=== PATIENT | male | born 1945 | race Caucasian/White ===

== ENCOUNTER → 2018-03-12 07:36 | Outpatient (CLI) | payer MEDICARE, OTHER, SELFPAY ==
[2018-03-12 10:01] LABS: Cholesterol 183 mg/dL (140-199); HDL Cholesterol 45 mg/dL (40-60); LDL Cholesterol Calculated 118 mg/dL (<100); Triglycerides 98 mg/dL (35-150)
[2018-03-12 10:27] LABS: Prostate Specific Antigen Scrn 2.46 ng/mL (0.1-4.0)
== END ==
PROVIDERS: Visit Provider Internal Medicine Cardiovascular Disease
DX: Z12.5 Encounter for screening for malignant neoplasm of prostate (principal); E78.5 Hyperlipidemia, unspecified
CPT/HCPCS: 36415; 80061; G0103

== ENCOUNTER → 2018-06-10 12:29 | Outpatient (CLI) | payer MEDICARE, OTHER, SELFPAY ==
--- NOTE | 2018-06-10 | DI.ECHO.S_ITS ---
[facility]---------+ [facility] +---------+ : : [address] : [place] : : : : [id number] : : : : Phone: [phone]---------+ Echocardiogram Report + + :Name: ADELAIDA DESHPANDE Study Date: 06/10/2018 Height: 72 in : :[facility] Weight: 231 lb : : Gender: Male BSA: 2.3 m2 : :: 1945 Age: 72 yrs BP: 184/120 mmHg: :Reason For Study: Ascending aortic dilatation : :History: CABG : :Ordering Physician: Eduar : :P[place] Performed By: Jeanette Robb : + + Interpretation Summary The left ventricle is mildly dilated. The ejection fraction is estimated to be 50-55%. There has been no significant change in LVEF since the previous study. The right ventricle is normal in size and function. No significant valvular pathology seen. The ascending aorta is moderately enlarged (4.2 cm in diameter. In March 2014, it was about 4.6 cm). Procedure: A two-dimensional transthoracic echocardiogram with color flow and Doppler was performed. Comparison is made with the echocardiogram of 04/20/2014. Mr. Deshpande was hypertensive during today's exam. Pre and post exam readings were identical, 184/120 mmHg. He was asymptomatic. The patient was in sinus bradycardia with heart rates between 51-64 bpm during the exam. Left Ventricle: Left ventricular wall thickness is at the upper limits of normal. The left ventricle is mildly dilated. There is no thrombus. The ejection fraction is estimated to be 50-55%. There has been no significant change since the previous study. There is thinning and akinesis of the proximal inferior wall and inferoseptum with moderately severe hypokinesis in the proximal and mid posterior wall. This is unchanged compared to the previous study. Assessment of diastolic parameters indicates a relaxation abnormality of the left ventricle, consistent with normal filling pressures. Right Ventricle: The right ventricle is normal in size and function. Atria: The left atrium is mildly dilated. The left atrium has mildly decreased in size since the prior echo exam. Right atrial size is normal. There is no Doppler evidence for an interatrial shunt. Mitral Valve: There is mild mitral annular calcification. There is trace mitral regurgitation. Aortic Valve: The aortic valve is trileaflet. The aortic valve is slightly calcified. There is no aortic valve stenosis. There is trace aortic regurgitation. Tricuspid Valve: The tricuspid valve is normal. The right ventricular systolic pressure is estimated at least 23 mmHg assuming a right atrial pressure of 3 mm Hg. There is trace tricuspid regurgitation. Pulmonic Valve: The pulmonic valve is not well seen, but is grossly normal. There is a trace or physiologic amount of pulmonic regurgitation. Great Vessels: The aortic root is mildly dilated. The ascending aorta is moderately enlarged. The aortic arch is mildly enlarged. The IVC is of normal diameter and collapses greater than 50% with a sniff. This suggests a low right atrial pressure of 3 mm Hg. Pericardium/ Pleura There is no pericardial effusion. MMode/2D Measurements & Calculations LVIDd: 5.9 cm LVOT diam: 2.4 cm LVIDs: 4.4 cm Ao root diam: 4.3 cm FS: 24.1 % Aortic Jxn: 3.5 cm EPSS: 1.0 cm asc Aorta Diam: 4.2 cm IVSd: 1.1 cm Ao Arch Diam (Prox Trans): 3.3 cm LVPWd: 0.84 cm LV marroquin. diameter/BSA (cm/m^2): 2.6 LV sys. diameter/BSA (cm/m^2): 2.0 LA A2 area: 24.7 cm2 RA long axis: 5.9 cm LA A4 area: 24.0 cm2 RA area: 18.6 cm2 LA length (vol): 6.3 cm RA vol: 49.5 ml LA vol: 80.3 ml RA : 21.9 ml/m2 LA vol index: 35.5 ml/m2 IVC diam: 1.3 cm RVD1 (basal): 2.5 cm RVD2 (mid): 2.1 cm TAPSE: 2.7 cm Doppler Measurements & Calculations Ao V2 max: 134.9 cm/sec LVOT Max Rubens: 69.8 cm/sec Ao V2 mean: 85.0 cm/sec LV V1 max P.9 mmHg Ao max P.3 mmHg LV V1 VTI: 19.7 cm Ao mean P.4 mmHg HERBER(I,D): 3.1 cm2 Ao V2 VTI: 28.3 cm HERBER(V,D): 2.3 cm2 sev ratio: 0.70 HERBER indexed to BSA (cm^2/m^2): 1.4 MV E max rubens: 65.2 cm/sec TR max rubens: 219.1 cm/sec MV A max rubens: 100.6 cm/sec TR max P.2 mmHg MV E/A: 0.65 PA V2 max: 77.6 cm/sec Med Peak E' Rubens: 4.2 cm/sec PA V2 mean: 49.2 cm/sec E/E' med: 15.5 PA mean P.1 mmHg Lat Peak E' Rubens: 7.7 cm/sec PA Accel Time: 0.11 sec E/E' lat: 8.5 E/e' average: 12.0 MV dec time: 0.21 sec MV P1/2t: 60.6 msec MV P1/2t max rubens: 65.2 cm/sec MVA(P1/2t): 3.6 cm2 Reading Physician:EKTA
== END ==
PROVIDERS: PCP Student in an Organized Health Care Education/Training Program; Visit Provider Internal Medicine Cardiovascular Disease
DX: I77.810 Thoracic aortic ectasia (principal); I05.9 Rheumatic mitral valve disease, unspecified
CPT/HCPCS: 93306

== ENCOUNTER → 2018-08-28 09:35 | Outpatient (CLI) | payer MEDICARE, OTHER, SELFPAY ==
[2018-08-28 11:02] LABS: Alanine Aminotransferase 33 IU/L (21-72); Albumin 4.3 g/dL (3.5-5.0); Albumin Globulin Ratio 1.5 (1.0-2.8); Alkaline Phosphatase 83 U/L (38-126); Aspartate Aminotransferase 26 IU/L (17-59); BUN Creatinine Ratio 24.5 (6-22); Bilirubin Total 0.3 mg/dL (0.2-1.3); Blood Urea Nitrogen 27 mg/dL (9-20); Calcium 9.2 mg/dL (8.4-10.2); Carbon Dioxide 28 mmol/L (22-32); Chloride 106 mmol/L (98-107); Cholesterol 184 mg/dL (140-199); Estimated Glomerular Filt Rate > 60.0 mL/min (>60); Globulin 2.9 g/dL (1.7-4.1); Glucose 76 mg/dL (80-110); HDL Cholesterol 50 mg/dL (40-60); HEMOLYSIS < 15 (0-50); LDL Cholesterol Calculated 113 mg/dL (<100); Potassium 5.2 mmol/L (3.4-5.1); Sodium 145 mmol/L (137-145); Total Protein 7.2 g/dL (6.3-8.2); Triglycerides 106 mg/dL (35-150)
[2018-08-28 11:13] LABS: Vitamin D 25 Hydroxy (D3) 75.7 ng/mL (30.0-100.0)
[2018-08-28 11:27] LABS: Prostate Specific Antigen Scrn 2.51 ng/mL (0.1-4.0)
== END ==
PROVIDERS: PCP Student in an Organized Health Care Education/Training Program; Visit Provider Student in an Organized Health Care Education/Training Program
DX: E78.2 Mixed hyperlipidemia (principal); I10 Essential (primary) hypertension; Z12.5 Encounter for screening for malignant neoplasm of prostate; E55.9 Vitamin D deficiency, unspecified
CPT/HCPCS: 36415; 80053; 80061; 82306; G0103

== ENCOUNTER → 2018-11-15 12:57 | Outpatient (CLI) | payer MEDICARE, OTHER, SELFPAY ==
--- NOTE | 2018-11-15 | DI.RAD.S_ITS ---
PROCEDURE: XR KNEE LT 3V INDICATIONS: BILATERAL KNEE PAIN TECHNIQUE: 3 views of the knee were acquired. COMPARISON: [facility], CR, XR KNEE RT 3V, 11/15/2018, 13:03. FINDINGS: Bones: No fractures or dislocations. No suspicious bony lesions. Mild medial joint space narrowing, subchondral sclerosis and spurring. There is superior pole patellar spurring Possible sub-5 mm loose body projects in the anterior joint space adjacent to the tibial plateau on the lateral view Soft tissues: Scattered surgical clips. No joint effusion IMPRESSION: Mild left knee joint degeneration. Possible small loose body as detailed above. Dictated by: Aneudy Montejo M.D. on 11/15/2018 at 14:13 Approved by: Aneudy Montejo M.D. on 11/15/2018 at 14:16
--- NOTE | 2018-11-15 | DI.RAD.S_ITS ---
PROCEDURE: XR KNEE RT 3V INDICATIONS: BILATERAL KNEE PAIN TECHNIQUE: 3 views of the knee were acquired. COMPARISON: None. FINDINGS: Bones: No fractures or dislocations. No suspicious bony lesions. Mild narrowing of the medial joint space. Subchondral sclerosis and spurring. Probable chronic corticated ununited osteophytes projecting adjacent to medial tibial plateau. Soft tissues: Small joint effusion. Possible multiple sub-5 mm loose bodies project in anterior intercondylar notch IMPRESSION: Mild degenerative joint disease. Small joint effusion. Possible anterior sub-5 mm loose bodies. Dictated by: Aneudy Montejo M.D. on 11/15/2018 at 14:02 Approved by: Aneudy Montejo M.D. on 11/15/2018 at 14:05
== END ==
PROVIDERS: PCP Student in an Organized Health Care Education/Training Program; Visit Provider Anesthesiology Pain Medicine
DX: M25.562 Pain in left knee (principal); M25.561 Pain in right knee; M17.0 Bilateral primary osteoarthritis of knee; M25.461 Effusion, right knee
CPT/HCPCS: 73562

== ENCOUNTER → 2019-04-18 08:25 | Outpatient (CLI) | payer MEDICARE, OTHER, SELFPAY ==
--- NOTE | 2019-04-18 | DI.MRI.S_ITS ---
PROCEDURE: MR LUMBAR SPINE WO CON INDICATIONS: Spinal stenosis, lumbosacral region TECHNIQUE: Noncontrast sagittal T1 spin echo and T2 fast echo, sagittal STIR, axial T1 and T2 fast spin echo through the lumbar spine. In cases with scoliosis, additional coronal T2 fast spin echo may be performed. COMPARISON: [facility], MR, L-SPINE WITHOUT CONTRAST, 06/18/2013, 11:42. FINDINGS: Image quality: Excellent. Alignment and Curvature: There is mild dextroscoliosis of lumbar spine centered at L2-3 level. Straightening of normal lumbar lordosis is seen. Bone Marrow: Marrow edema is noted involving inferior endplate of L1 and superior endplate of L2. No discrete fracture line is seen. Finding likely represents degenerative end plate changes. No other area of abnormal marrow signal. No acute compression fracture. Spinal Cord: Conus medullaris terminates at the L1 level. Visualized cord demonstrates normal signal and size. Paraspinous Soft Tissues: No paravertebral masses. L1-L2: Decreased intervertebral disc space and degenerative end plate changes are noted. There is diffuse disc bulge and superimposed central to right-sided disc herniation and extrusion extending along right posterior aspect of L2. Bilateral facet arthrosis is also seen. There is moderate central canal stenosis and mild bilateral neuroforaminal narrowing. There is likely compression of descending right L2 nerve root at this level. L2-L3: Decreased intervertebral disc space and degenerative end plate changes are seen. Broad-based disc bulge and bilateral facet arthrosis is noted causing moderate central canal stenosis, moderate to severe left-sided neuroforaminal narrowing and mild right-sided neuroforaminal narrowing. There is likely compression of left L2 and L3 nerve roots. L3-L4: Decreased intervertebral disc space and degenerative endplate changes are seen. There is broad-based disc bulge and bilateral facet arthrosis with hypertrophy of ligamentum flavum. Moderate to severe central canal stenosis and bilateral neuroforaminal narrowing is seen. There is likely compression of left L3 and L4 nerve roots. L4-L5: Decreased intervertebral disc space and degenerative end plate changes are noted. Broad-based disc bulge and bilateral facet arthrosis is seen with hypertrophy of ligamentum flavum. Moderate central canal stenosis is seen. Severe bilateral neuroforaminal narrowing is noted worse on the right side. There is compression of bilateral exiting L4 nerve roots. L5-S1: Decreased intervertebral disc space and degenerative end plate changes are seen. Broad-based disc bulge and bilateral facet arthrosis is noted. There is mild central canal stenosis and moderate right worse than left bilateral neuroforaminal narrowing. There is compression of bilateral exiting L5 nerve roots. IMPRESSION: 1. Compared to 2013, there is worsening degenerative disc bulge and bilateral facet arthrosis throughout lumbar spine causing moderate to severe central canal stenosis and bilateral neuroforaminal narrowing as described above. 2. Mild to moderate dextroscoliosis centered at L2-3 level. No acute compression fracture or spondylolisthesis. Dictated by: Chico Napier M.D. on 04/18/2019 at 10:21 Approved by: Chico Napier M.D. on 04/18/2019 at 10:29
== END ==
PROVIDERS: PCP Student in an Organized Health Care Education/Training Program; Visit Provider Anesthesiology Pain Medicine
DX: M48.07 Spinal stenosis, lumbosacral region (principal); M47.816 Spondylosis without myelopathy or radiculopathy, lumbar region; M47.817 Spondylosis without myelopathy or radiculopathy, lumbosacral region; M41.86 Other forms of scoliosis, lumbar region
CPT/HCPCS: 72148

== ENCOUNTER → 2019-09-12 06:33 | Outpatient (CLI) | payer MEDICARE, OTHER, SELFPAY ==
--- NOTE | 2019-09-12 | DI.MRI.S_ITS ---
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 TECHNIQUE: Noncontrast sagittal T1 spin echo, axial FLAIR, axial gradient echo, axial diffusion and ADC through the brain. Axial thin-slice 3D CISS, coronal TruFISP, axial T1 spin echo with fat saturation through the internal auditory canals. After the administration of contrast, thin slice axial and coronal T1 spin echo with fat saturation through the internal auditory canals, and axial T1 spin echo with fat saturation through the brain. COMPARISON: [facility], MR, BRAIN (IAC) W&WO CONTRAST, 09/07/2017, 7:09. [facility], MR, BRAIN (IAC) W&WO CONTRAST, 05/10/2016, 8:25. FINDINGS: Image quality: Excellent. Cerebellopontine angles: No cerebellopontine angle masses but at the internal auditory canal on the right, the laterality of prior documented acoustic neuroma, there is an enhancing soft tissue structure that has maximal AP and transverse dimensions of 6 x 12 mm, with a maximal craniocaudad dimension of 7 mm. A earlier postoperative MR scan with contrast is not available for review and it has been 2 years since the last available preoperative MR scanning. Inner ear structures appear normally formed. No suspicious enhancement in the left side internal auditory canal or along the course of the 7th cranial nerve on the left. CSF spaces: Ventricles are normal in size and shape. No extra-axial fluid collections. Basal cisterns are patent. Brain: No intracranial bleeds or mass effects. Campbell-white matter interface is intact. No abnormal intracranial enhancement. Diffusion weighted images demonstrate no acute ischemic insults. Brainstem appears normal. Normal intravascular flow voids are present. Skull and face: Calvarial marrow signal is normal. Orbits appear normal. Sinuses: Sinuses and mastoids are clear. IMPRESSION: The residual soft tissue mass with enhancement at the right internal auditory canal measures up to 6 x 12 x 7 mm and if a comparison contrast-enhanced MR scan is available for review subsequent to the last available previous surgery MR scan (dated 09/07/17) it should be obtained for review and an addendum report to this study can be generated. This likely is a small residual acoustic neuroma by appearance but it is conceivable that postoperative scarring could produce such an appearance with enhancement. Dictated by: Jorgito Garzon M.D. on 09/12/2019 at 8:12 Approved by: Jorgito Garzon M.D. on 09/12/2019 at 8:25
== END ==
PROVIDERS: PCP Student in an Organized Health Care Education/Training Program; Visit Provider Otolaryngology Otology & Neurotology
DX: D33.3 Benign neoplasm of cranial nerves (principal)
CPT/HCPCS: 70553

== ENCOUNTER → 2019-10-10 06:39 | Outpatient (CLI) | payer MEDICARE, OTHER, SELFPAY ==
--- NOTE | 2019-10-10 | DI.ECHO.S_ITS ---
[facility]---------+ [facility] +---------+ : : [address] [place] : : : : [id number] : : : : Phone: [phone]+ Echocardiogram Report + + :Name: ADELAIDA DSEHPANDE Study Date: 10/10/2019 Height: 71 in : :[facility] Weight: 230 lb : : Gender: Male BSA: 2.2 m2 : :: 1945 Age: 73 yrs BP: 131/80 mmHg: :Reason For Study: Thoracic aortic ectasia : :Ordering Physician: Eduar : :Onel Ramirez Performed By: Karen Page : + + Interpretation Summary The left ventricle is dilated based on volume of 166 ml. LVEDD has increased from 5.9-6.1cm The ejection fraction is estimated to be 50-55%. The aortic root is severely dilated. 4.8 cm an increase from last time when it was 4.3 The ascending aorta is moderately enlarged. There is no significant valvular heart disease. Procedure: A two-dimensional transthoracic echocardiogram with color flow and Doppler was performed. The study quality was technically adequate. Comparison is made with the echocardiogram of 06/10/2018. The heart rate ranged between 57-61 bpm during the study. Left Ventricle: The left ventricle is dilated based on volume of 166 ml. LVEDD has increased from 5.9-6.1cm. There is normal left ventricular wall thickness. The ejection fraction is estimated to be 50-55%. Septal motion is consistent with conduction abnormality. Diastolic parameters suggest a relaxation abnormality of the left ventricle, consistent with probable normal filling pressures. Right Ventricle: The right ventricle grossly appears normal in size with probable normal systolic function. Atria: The left atrium is mildly dilated. Right atrial size is normal. There is no Doppler evidence for an interatrial shunt. The atrial septum is aneurysmal. Mitral Valve: The mitral valve leaflets appear mildly thickened, but open well. There is mild mitral annular calcification. There is trace mitral regurgitation. Aortic Valve: The aortic valve is trileaflet. The aortic valve opens well. There is trace aortic regurgitation. Tricuspid Valve: The tricuspid valve is normal in structure and function. There is a trace or physiologic amount of tricuspid regurgitation. Pulmonary artery pressures cannot be estimated because of the lack of a measurable TR jet velocity. Pulmonic Valve: The pulmonic valve is not well visualized. There is trace pulmonic regurgitation. Great Vessels: The aortic root is severely dilated. The ascending aorta is moderately enlarged. The pulmonary artery is normal size. The IVC is of normal diameter and collapses greater than 50% with a sniff. This suggests a low right atrial pressure of 3 mm Hg. Pericardium/ Pleura There is no pericardial effusion. There is no pleural effusion. MMode/2D Measurements & Calculations LVIDd: 6.1 cm LVOT diam: 2.4 cm EPSS: 0.91 cm Ao root diam: 4.7 cm IVSd: 0.70 cm Aortic Jxn: 3.9 cm LVPWd: 0.81 cm asc Aorta Diam: 4.3 cm LV marroquin. diameter/BSA (cm/m^2): 2.7 LA A2 area: 25.1 cm2 RA long axis: 5.5 cm LA A4 area: 26.4 cm2 RA area: 19.2 cm2 LA length (vol): 6.6 cm RA vol: 57.1 ml LA vol: 85.2 ml RA : 25.5 ml/m2 LA vol index: 38.1 ml/m2 RVD1 (basal): 4.4 cm RVD2 (mid): 3.8 cm TAPSE: 2.3 cm Doppler Measurements & Calculations Ao V2 max: 136.3 cm/sec LVOT Max Rubens: 68.9 cm/sec Ao V2 mean: 89.8 cm/sec LV V1 max P.9 mmHg Ao max P.4 mmHg LV V1 VTI: 16.3 cm Ao mean P.9 mmHg HERBER(I,D): 2.5 cm2 Ao V2 VTI: 29.4 cm HERBER(V,D): 2.3 cm2 sev ratio: 0.56 HERBER indexed to BSA (cm^2/m^2): 1.1 MV E max rubens: 59.8 cm/sec PA V2 max: 79.8 cm/sec MV A max rubens: 94.3 cm/sec PA V2 mean: 53.1 cm/sec MV E/A: 0.63 PA mean P.3 mmHg Med Peak E' Rubens: 4.3 cm/sec PA Accel Time: 0.13 sec E/E' med: 13.8 Lat Peak E' Rubens: 7.5 cm/sec E/E' lat: 7.9 E/e' average: 10.9 MV dec time: 0.17 sec MV P1/2t: 50.7 msec MV P1/2t max rubens: 60.8 cm/sec SV(LVOT): 73.4 ml MVA(P1/2t): 4.3 cm2 Reading Physician:02:45 PM
== END ==
PROVIDERS: PCP Student in an Organized Health Care Education/Training Program; Visit Provider Internal Medicine Cardiovascular Disease
DX: I77.810 Thoracic aortic ectasia (principal)
CPT/HCPCS: 93306

== ENCOUNTER → 2019-10-23 14:42 | Outpatient (CLI) | payer MEDICARE, OTHER, SELFPAY ==
[2019-10-23 16:01] LABS: BUN Creatinine Ratio 28.3 (6-22); Blood Urea Nitrogen 34 mg/dL (9-20); Calcium 9.5 mg/dL (8.4-10.2); Carbon Dioxide 29 mmol/L (22-32); Chloride 105 mmol/L (98-107); Estimated Glomerular Filt Rate 59.7 mL/min (>60); Glucose 79 mg/dL (80-110); HEMOLYSIS < 15 (0-50); Potassium 4.4 mmol/L (3.4-5.1); Sodium 141 mmol/L (137-145)
== END ==
PROVIDERS: Nurse Practitioner; PCP Student in an Organized Health Care Education/Training Program; Visit Provider Student in an Organized Health Care Education/Training Program
DX: I77.9 Disorder of arteries and arterioles, unspecified (principal); I77.810 Thoracic aortic ectasia; I10 Essential (primary) hypertension
CPT/HCPCS: 36415; 80048

== ENCOUNTER → 2019-10-31 12:44 | Outpatient (CLI) | payer MEDICARE, OTHER, SELFPAY ==
--- NOTE | 2019-10-31 | DI.CT.S_ITS ---
PROCEDURE: CT ANGIO CHEST ABDOMEN INDICATIONS: disorder of arteries and arterioles TECHNIQUE: Precontrast 5 mm thick sections acquired from the lung apices to the iliac crests. After the administration of intravenous contrast, 2.5 mm thick sections again acquired from the lung apices to the iliac crests. 10 mm maximum intensity projection (MIP) oblique sagittal and coronal reformats were then acquired. For radiation dose reduction, the following was used: automated exposure control. COMPARISON: None. FINDINGS: Image quality: Excellent. AORTA: The aorta demonstrates scattered areas of wall calcification consistent mild atherosclerotic disease. There is aneurysmal dilation of the ascending portion measuring 4.2 cm. No evidence of dissection. CHEST: Lungs and pleura: No acute airspace opacities. No pleural effusions or pneumothorax. Central and peripheral airways are patent and normal in caliber. 5 mm right upper lobe nodule is present on series 5 image 150. No priors are available for comparison. Mediastinum: Heart size is mildly enlarged. No pericardial effusion. No mediastinal or hilar adenopathy by size criteria. Central pulmonary arteries are normal in size. Esophagus is normal in caliber. Mild hiatal hernia. Bones and chest wall: No axillary adenopathy by size criteria. Thyroid gland is unremarkable. No suspicious bony lesions. No vertebral body compression fractures. ABDOMEN: Vasculature: Celiac trunk and mesenteric arteries are patent. Renal arteries are also patent. Solid organs: Liver is normal in size and enhancement. Gallbladder is unremarkable. Biliary system is non dilated. Pancreas enhances normally. Spleen is normal in size and enhancement. No adrenal nodules. Both kidneys are normal in size and enhancement, without hydronephrosis. Bilateral renal cysts are present the largest measuring 3 cm on the right. Peritoneum and bowel: No free fluid or air. Bowel loops are normal in caliber and wall thickness. Nodes and vessels: No retroperitoneal or mesenteric adenopathy by size criteria. Inferior vena cava is normal in morphology. Bones: No suspicious bony lesions. No vertebral body compression fractures. Miscellaneous: No ventral hernias. IMPRESSION: 1. Mild ascending thoracic aneurysmal dilation as above. 2. Nonspecific 5 mm right upper lobe nodule. No priors are available for comparison. Recommend interval followup as below. Fleischner Society criteria for SOLID lung nodule followup. Nodule size (mm)Low-risk patientHigh-risk patient<6 (single or multiple)No routine followup.Optional CT at 12 months. 6-8 (single or multiple)CT at 6-12 months, then optional CT at 18-24 mo.CT at 6-12 months, then CT at 18-24 months. >8 (single)CT, PET-CT, or biopsy at 3 months. Same as for low-risk pts. >8 (multiple)CT at 3-6 months, then optional CT at 18-24 mo.CT at 3-6 months, then CT at 18-24 months. Recommendations do not apply to lung cancer screening, patients with immunosuppression, or patients with known primary cancer. Dictated by: Danielle Shanks M.D. on 10/31/2019 at 15:35 Approved by: Danielle Shanks M.D. on 10/31/2019 at 16:00
== END ==
PROVIDERS: PCP Student in an Organized Health Care Education/Training Program; Referring Provider Internal Medicine Cardiovascular Disease; Visit Provider Nurse Practitioner
DX: I71.2 Thoracic aortic aneurysm, without rupture (principal); I77.9 Disorder of arteries and arterioles, unspecified; R91.8 Other nonspecific abnormal finding of lung field; I51.7 Cardiomegaly; K44.9 Diaphragmatic hernia without obstruction or gangrene
CPT/HCPCS: 71275; 74175; Q9967

== ENCOUNTER → 2019-11-14 18:08 | Outpatient (CLI) | payer MEDICARE, OTHER, SELFPAY ==
--- NOTE | 2019-11-14 18:13 | DI.RAD.S_ITS ---
PROCEDURE: XR HUMERUS LT 2V INDICATIONS: on plavix, hematoma, r/o fracture TECHNIQUE: 2 views of the humerus were acquired. COMPARISON: None. FINDINGS: Bones: No fractures or dislocations. No suspicious bony lesions. Mild to moderate degenerative joint disease in the acromioclavicular and glenohumeral joint. Superior migration of humeral head suggests rotator cuff tendinopathy. Soft tissues: No suspicious soft tissue calcifications. IMPRESSION: 1. No fractures. 2. Suspect rotator cuff tendinopathy. 3. Mild/moderate degenerative joint disease. Dictated by: Ana Maria Clemente M.D. on 11/14/2019 at 21:08 Approved by: Ana Maria Clemente M.D. on 11/14/2019 at 21:10
--- NOTE | 2019-11-14 18:13 | DI.RAD.S_ITS ---
PROCEDURE: XR RIBS LT MIN 3V W CXR1V INDICATIONS: on plavix, hematoma, r/o fracture TECHNIQUE: 2 views of the left ribs were acquired, along with a single view chest. COMPARISON: [facility], PRASANTH, CHEST 1 VIEW, 11/22/2017, 22:08. [facility], PRASANTH, XR HUMERUS LT 2V, 11/14/2019, 18:16. FINDINGS: Surgical changes and devices: Sternotomy and CABG. The most superior sternal wire is fractured but unchanged since the last exam. Bones and chest wall: No fractures or dislocations. No suspicious bony lesions. Overlying soft tissues appear unremarkable. Lungs and pleura: No pleural effusions or pneumothorax. Lungs appear clear. Mediastinum: Mediastinal contours appear normal. Heart size is normal. IMPRESSION: No displaced left rib fractures. Dictated by: Ana Maria Clemente M.D. on 11/14/2019 at 21:05 Approved by: Ana Maria Clemente M.D. on 11/14/2019 at 21:08
== END ==
PROVIDERS: PCP Student in an Organized Health Care Education/Training Program; Referring Provider Physician Assistant; Visit Provider Physician Assistant
DX: S40.029A Contusion of unspecified upper arm, initial encounter (principal); S20.219A Contusion of unspecified front wall of thorax, initial encounter; M19.012 Primary osteoarthritis, left shoulder; W19.XXXA Unspecified fall, initial encounter; Z79.01 Long term (current) use of anticoagulants; Z95.1 Presence of aortocoronary bypass graft
CPT/HCPCS: 71101; 73060

== ENCOUNTER 2019-11-20 02:34 | Emergency (ER) | payer MEDICARE, OTHER, SELFPAY ==
--- NOTE | 2019-11-20 02:43 | ED_ITS ---
HPI - General Adult General Chief complaint: Fall Stated complaint: GLF Time Seen by Provider: 11/20/19 02:35 History of Present Illness HPI narrative: 73 yo man recently off all blood pressure meds and plavix. Fell in his bathroom and hit his right congregational, notes approximately 2min LOC. No seizure like activity, some confusion that is clearing is noted. No focal neurologic findings, no chest pain, diaphoresis, or dyspnea. No fevers and he and his confirm that he was in his usual state of good health prior to going to sleep this evening. He has little recollection of the event specifically whether he had pain, headache, palpitations or sensation that he was going to pass out prior to the event. Related Data Home Medications Medication Instructions Recorded Confirmed ASPIRIN (Aspirin EC) 81 mg PO QDAY #0 02/28/12 11/14/19 acetaminophen 2 - 4 tab PO QDAY #0 02/28/12 11/14/19 naproxen sodium [Aleve] 1 tab PO PRN #0 05/13/13 11/14/19 cholecalciferol (vitamin D3) 4,000 unit PO QDAY #0 07/15/16 11/14/19 [Vitamin D3] [garth/mag/zinc] #0 01/15/17 11/14/19 [co-Q10] 200 mg PO QDAY #0 01/15/17 11/14/19 acetaminophen-codeine 1 tab PO PRN PRN #0 01/15/17 11/14/19 omega 5-ymi-vef-fish oil [Fish Oil] 2,000 mg PO QDAY #0 01/15/17 11/14/19 diphenhydramine HCl 50 mg capsule 50 mg PO BEDTIME PRN 08/28/18 11/14/19 ranitidine HCl 150 mg tablet 300 mg PO DAILY 08/28/18 11/14/19 Previous Rx's Medication Instructions Recorded tamsulosin 0.4 mg capsule 0.4 mg PO BEDTIME #30 cap 08/28/18 clopidogrel 75 mg tablet 75 mg PO QDAY #90 tab 11/11/18 Allergies Allergy/AdvReac Type Severity Reaction Status Date / Time losartan Allergy Severe seizures Verified 11/14/19 17:35 metoprolol Allergy Severe Hypotension, Verified 11/14/19 17:35 presyncope lisinopril AdvReac Mild Cough Verified 11/14/19 17:35 Review of Systems Review of Systems Narrative: The laser eye surgery on the right eye earlier today All systems reviewed and are unremarkable except as noted in HPI and below Patient History Medical History (Updated 11/20/19 @ 04:09 by Denise Holm MD) CAD (coronary artery disease) (Chronic 2007) Chicken pox (Resolved ~1954) Chronic back pain (Chronic) Contusion of left arm (Acute) Contusion of left chest wall (Acute) Fall (Acute) Foot pain (Resolved 2015) Gastric outlet obstruction (Resolved 1997) Hearing loss (Chronic) Hemorrhoids (Chronic) History of recurrent ear infection (Resolved) Hyperlipidemia (Chronic) Hypertension (Chronic) Measles (Resolved ~1954) Mumps (Resolved ~1954) Obesity (BMI 30.0-34.9) (Acute) Paroxysmal atrial fibrillation (Chronic) Plantar warts (Resolved ~1964) Pyloric stenosis (Resolved 1947) Right acoustic neuroma (Resolved 2003) Shoulder pain (Chronic 2012) Spasms of the hands or feet (Acute) Stroke (Resolved 2017) Surgical History (Updated 05/22/18 @ 11:04 by Annamaria Roberson) Anesthesia (Resolved) History of ear surgery (Resolved 2003) History of gastrointestinal surgery (Resolved 1947) Status post coronary artery bypass graft (Resolved 2007) Status post gastric surgery (Resolved 1997) Family History (Updated 05/22/18 @ 11:10 by Annamaria Roberson) Sister Diabetes mellitus Father COPD (chronic obstructive pulmonary disease) Emphysema of lung Mother GI cancer Colon cancer Social History Smoking Status: Never smoker Smoking Status: Never smoker Exam Narrative Exam Narrative: General: Healthy appearing, in no acute distress. Abrasion and contusion to the right congregational, perseverating questions. Oriented to person, place, but not date or age. Well-nourished well-developed HEENT: Moist mucous membranes, normal sclera with reactive pupils, surgical scar from acoustic neuroma right occiput. Neck: No JVD, supple Respiratory: Lungs are clear to auscultation, no wheezing no rales no rhonchi. Full and symmetrical air movement Cardiac: Regular rate and rhythm no murmurs no bruits Abdomen: Soft nontender good bowel tones, no flank pain Skin: Warm and dry, no rashes Neurologic: Grossly neurologically intact with no obvious asymmetries or abnormalities Extremities: large bruise to L upper arm appears to be 2-3days old, well perfused Psych: Cooperative, but poor insight and notable confusion Initial Vital Signs Initial Vital Signs: Vital Signs Temperature 98.4 F 11/20/19 02:45 Pulse Rate 68 11/20/19 02:45 Respiratory Rate 27 H 11/20/19 02:45 Blood Pressure 203/105 H 11/20/19 02:45 Pulse Oximetry 98 11/20/19 02:45 Course Orders Ordered: ED Orders 11/20/19 02:40 Complete Blood Count AUTO DIFF Stat Comprehensive Metabolic Panel Stat Troponin & CK Cardiac Panel Stat 11/20/19 02:44 XR chest 1V Stat 11/20/19 02:45 CT cervical spine wo con Stat CT head/brain wo con Stat 11/20/19 02:53 EKG-12 Lead Stat Sodium Chloride (Normal Saline 0.9%) 1,000 mls @ 150 mls/hr IV CONT PUMA Last Admin: 11/20/19 03:23 Dose: 150 mls/hr Documented by: MMCFARL Vital Signs Vital signs: Vital Signs - 8 hr 11/20/19 02:45 11/20/19 03:07 11/20/19 03:30 Temperature 98.4 F Pulse Rate 68 66 63 Respiratory Rate 27 H 25 H 12 Blood Pressure 203/105 H Blood Pressure [Right Arm] 186/102 H 167/92 H Pulse Oximetry 98 97 96 Medical Decision Making Medical Records Medical records reviewed: Yes I reviewed the patient's medical records. Lab Data Lab results reviewed: Yes I reviewed the patient's lab results. Result diagrams: 11/20/19 02:40 11/20/19 02:40 Labs: Lab Results 11/20/19 11/20/19 Range/Units 02:40 02:40 WBC 8.3 (4.5-11.0) X10^3/uL RBC 4.62 (4.5-5.9) X10^6/uL Hgb 14.5 (13.5-17.5) g/dL Hct 42.0 (41-53) % MCV 91.0 (80-100) fL MCH 31.5 (26-34) PG MCHC 34.6 (30-36) % RDW 13.1 (11.6-14.8) % Plt Count 186 (150-400) X10^3/uL Neut % (Auto) 56.1 (50-75) % Lymph % (Auto) 28.8 (25-40) % Jasper % (Auto) 11.2 (3-14) % Eos % (Auto) 3.0 (2-4) % Baso % (Auto) 0.9 (0-2) % Neut # (Auto) 4700 (4030-0949) /uL Lymph # (Auto) 2400 (1654-0772) /uL Jasper # (Auto) 900 (0-900) /uL Eos # (Auto) 200 (0-450) /uL Baso # (Auto) 100 (0-100) /uL Sodium 141 (137-145) mmol/L Potassium 4.0 (3.4-5.1) mmol/L Chloride 106 (98-107) mmol/L Carbon Dioxide 27 (22-32) mmol/L BUN 30 H (9-20) mg/dL Creatinine 1.00 (0.66-1.25) mg/dL Estimated GFR > 60.0 (>60) mL/min BUN/Creatinine Ratio 30.0 H (6-22) Glucose 106 (80-110) mg/dL Calcium 9.3 (8.4-10.2) mg/dL Total Bilirubin 0.5 (0.2-1.3) mg/dL AST 30 (17-59) IU/L ALT 21 (<50) IU/L Alkaline Phosphatase 86 (38-126) U/L Total Creatine Kinase 160 (55-170) U/L CK-MB (CK-2) 2.96 H (<2.37) ng/mL CK-MB (CK-2) Rel Index 1.9 (1.5-5.0) % Troponin I < 0.012 (0.01-0.034) ng/mL Total Protein 7.6 (6.3-8.2) g/dL Albumin 4.3 (3.5-5.0) g/dL Globulin 3.3 (1.7-4.1) g/dL Albumin/Globulin Ratio 1.3 (1.0-2.8) Imaging Data Chest x-ray: Attestation: I personally reviewed and interpreted this imaging study as follows: My Impression: Poor inspiration but no obvious fractures hemo thorax, pneumothorax or infiltrates CT scan - head: Radiologist's Impression: Dr Adkins: Right frontotemporal laceration and small scalp hematoma no skull fracture or acute intracranial anomaly CT - cervical spine: Attestation: I personally reviewed and interpreted this imaging study as follows: Radiologist's Impression: Dr Adkins: No acute fracture or misalignment of the cervical or upper thoracic spine ECG Data Attestation: I personally reviewed and interpreted this ECG as follows: Interpretation: Sinus rhythm at a rate of 65. Normal axis. No acute ischemia. Normal intervals. Prior inferior infarct with Q-waves in leads III and AVF MDM Narrative Medical decision making narrative: No evidence for significant medical pathology to explain the syncopal episode. Specifically no stroke, intracranial hemorrhage, acute coronary syndrome or infection. On re-examination he is clearing significantly. He now remembers that he was simply getting up to void. He also reports that he had laser eye surgery this morning and did not drink as much fluid during the day as he typically does. I suspect it was simply a vasovagal syncope with concussion. Signs and symptoms of concussion were reviewed including nausea confusion and memory loss over the next week or so along with headaches. There is a large hematoma to the right congregational there is a pinpoint area where blood is leaking from it is not enough for a suture. Steri-Strips are placed and a pressure dressing is placed over the entire area. Again anticipatory guidance in terms of the amount of bruising that will cover his entire left side of his face as the hematoma heels. Questions are answered and patient is safe for home discharge at this time Discharge Plan Departure Patient Disposition: Home Clinical Impression: Syncope, vasovagal Fall Qualifiers: Encounter type: initial encounter Qualified Code(s): W19.XXXA - Unspecified fall, initial encounter Concussion Qualifiers: Encounter type: initial encounter Loss of consciousness presence/duration: with LOC of 30 min or less Qualified Code(s): S06.0X1A - Concussion with loss of consciousness of 30 minutes or less, initial encounter Instructions: DI for Concussion Activity Restrictions/Additional Instructions: Thank you for coming in today I am very glad I did not find anything bad or life-threatening. There is no bleeding inside her brain and no evidence of infection, heart attack, stroke or other life-threatening issues that may have caused your episode of passing out. You hit the floor hard enough that you gave yourself a significant concussion. I would expect you to have headaches, dizziness, mild confusion or memory issues as well as nausea persisting over the next week or so. If you feel that symptoms are getting worse or not improving after week please do schedule an appointment with your primary care physician. The large bruise and hematoma over the right eyebrow will heal and all of that blood will spread out over the majority of your face. I encourage you to make up a delightful heroic story about how you got this bruise because people will b e asking:) I hope you heal completely. Please take care to avoid falls. Consider at least 1-2 minutes sitting at the bedside prior to walking into the bathroom when he get up in the middle of the night to go to the bathroom. Prescriptions: No Action ASPIRIN (Aspirin EC) 81 mg PO QDAY Qty: 0 RF: 0 acetaminophen 650 MG tablet extended release 2 - 4 tab PO QDAY Qty: 0 RF: 0 naproxen sodium [Aleve] 220 MG tablet 1 tab PO PRN Qty: 0 RF: 0 cholecalciferol (vitamin D3) [Vitamin D3] 2,000 UNIT capsule 4,000 unit PO QDAY Qty: 0 RF: 0 omega 5-vdj-cfv-fish oil [Fish Oil] 1,000 MG capsule 2,000 mg PO QDAY Qty: 0 RF: 0 [co-Q10] 200 mg PO QDAY Qty: 0 RF: 0 acetaminophen-codeine 30 MG/300 MG tablet 1 tab PO PRN PRNQty: 0 RF: 0 [garth/mag/zinc] Qty: 0 RF: 0 clopidogrel 75 mg tablet 75 mg PO QDAY Qty: 90 RF: 1 ranitidine HCl [Zantac] 150 mg tablet 300 mg PO DAILY RF: 0 diphenhydramine HCl [Unisom SleepGels] 50 mg capsule 50 mg PO BEDTIME PRNRF: 0 tamsulosin 0.4 mg capsule 0.4 mg PO BEDTIME Qty: 30 RF: 0 Referrals: Osito New MD [Primary Care Provider] -
--- NOTE | 2019-11-20 02:44 | DI.RAD.S_ITS ---
PROCEDURE: XR CHEST 1V INDICATIONS: syncope, fall TECHNIQUE: One view of the chest was acquired. COMPARISON: [facility], , CHEST 1 VIEW, 11/22/2017, 22:08. FINDINGS: Surgical changes and devices: Remote CABG.. Lungs and pleura: Lungs are clear. No pleural effusions or pneumothorax. Mediastinum: Mediastinal contours appear normal. Colonic technique exaggerates heart size. It is likely normal. Bones and chest wall: No suspicious bony lesions. Overlying soft tissues appear unremarkable. IMPRESSION: No evidence acute pulmonary process. Dictated by: Davis Coats M.D. on 11/20/2019 at 7:50 Approved by: Davis Coats M.D. on 11/20/2019 at 7:51
[2019-11-20 02:45] VITALS: BP 203/105; PULSE 68; RESP 27; TEMP 36.9; O2SAT 98; BMI 30.6
--- NOTE | 2019-11-20 02:45 | DI.CT.S_ITS ---
PROCEDURE: CT CERVICAL SPINE WO CON INDICATIONS: fall TECHNIQUE: Noncontrast 3 mm thick sections acquired from the skull base to the T4 level. Sagittal and coronal reformats were then constructed. For radiation dose reduction, the following was used: automated exposure control, adjustment of mA and/or kV according to patient size. COMPARISON: None. FINDINGS: Image quality: Excellent. Bones: No fractures or dislocations. Loss of normal cervical lordosis. There is degenerative disc disease, severe at C3-C4, C4-C5, C5-C6 and C6-C7. Bilateral facet arthropathy, most process C2-C3 and C3-C4 the right side. There is a right occipital craniotomy. Visualized superior ribs are intact. Soft tissues: Prevertebral soft tissues are normal in thickness. No paravertebral hematomas. No apical pneumothoraces. Trace left pleural effusion or pleural thickening. Mild haziness particularly aneurysm measuring 3.8 cm in diameter. IMPRESSION: 1. No fracture. 2. Degenerative changes as described. No significant discrepancy with the security shift manager radiology preliminary report. Dictated by: Ana Maria Clemente M.D. on 11/20/2019 at 8:06 Approved by: Ana Maria Clemente M.D. on 11/20/2019 at 8:09
--- NOTE | 2019-11-20 02:45 | DI.CT.S_ITS ---
PROCEDURE: CT HEAD/BRAIN WO CON INDICATIONS: fall, concussion TECHNIQUE: Noncontrast 4.5 mm thick angled axial sections acquired from the foramen magnum to the vertex, with coronal and sagittal reformats. For radiation dose reduction, the following was used: automated exposure control, adjustment of mA and/or kV according to patient size. COMPARISON: [facility], CT, HEAD WITHOUT CONTRAST, 07/15/2016, 17:46. FINDINGS: Image quality: Excellent. CSF spaces: Basal cisterns are patent. No extra-axial fluid collections. The ventricles are symmetric in size and shape. Brain: No intracranial bleeds or masses. There is cerebral volume loss for age, with resultant ventricular and sulcal prominence. There are periventricular and deep white matter chronic small vessel ischemic changes. There is intracranial internal carotid artery atherosclerosis. Skull and face: There is right occipital craniotomy. There is a small right frontal scalp hematoma. Sinuses: Visualized sinuses and mastoids are clear. IMPRESSION: 1. No acute intracranial abnormalities. 2. Cerebral volume loss and chronic microvascular ischemic changes. 3. Small right frontal scalp hematoma. No significant discrepancy with the automation sales manager radiology preliminary report. Dictated by: Ana Maria Clemente M.D. on 11/20/2019 at 6:58 Transcribed by: LINDSAY on 11/20/2019 at 6:59 Approved by: Ana Maria Clemente M.D. on 11/20/2019 at 8:03
[2019-11-20 02:51] LABS: Add Manual Diff / Slide Review NO; Basophils Absolute Auto 100 /uL (0-100); Basophils Percent Auto 0.9 % (0-2); Eosinophils Absolute Auto 200 /uL (0-450); Hemoglobin 14.5 g/dL (13.5-17.5); Lymphocytes Absolute Auto 2400 /uL (1100-4500); Lymphocytes Percent Auto 28.8 % (25-40); Mean Corpuscular HGB Conc 34.6 % (30-36); Mean Corpuscular Hemoglobin 31.5 PG (26-34); Monocytes Absolute Auto 900 /uL (0-900); Monocytes Percent Auto 11.2 % (3-14); Neutrophils Absolute Auto 4700 /uL (1500-7000); Neutrophils Percent Auto 56.1 % (50-75); Platelet Count 186 X10^3/uL (150-400); Red Blood Cell Count 4.62 X10^6/uL (4.5-5.9); Red Cell Distribution Width 13.1 % (11.6-14.8); White Blood Cell Count 8.3 X10^3/uL (4.5-11.0)
[2019-11-20 03:01] LABS: Alanine Aminotransferase 21 IU/L (<50); Albumin 4.3 g/dL (3.5-5.0); Albumin Globulin Ratio 1.3 (1.0-2.8); Alkaline Phosphatase 86 U/L (38-126); Aspartate Aminotransferase 30 IU/L (17-59); Bilirubin Total 0.5 mg/dL (0.2-1.3); Blood Urea Nitrogen 30 mg/dL (9-20); Calcium 9.3 mg/dL (8.4-10.2); Carbon Dioxide 27 mmol/L (22-32); Chloride 106 mmol/L (98-107); Creatine Kinase 160 U/L (55-170); Estimated Glomerular Filt Rate > 60.0 mL/min (>60); Globulin 3.3 g/dL (1.7-4.1); Glucose 106 mg/dL (80-110); Sodium 141 mmol/L (137-145); Total Protein 7.6 g/dL (6.3-8.2)
[2019-11-20 03:07] VITALS: BP 186/102; PULSE 66; RESP 25; O2SAT 97
[2019-11-20 03:12] LABS: Troponin I < 0.012 ng/mL (0.01-0.034)
[2019-11-20 03:16] LABS: CKMB % Relative Index 1.9 % (1.5-5.0); Creatine Kinase MB 2.96 ng/mL (<2.37)
[2019-11-20 03:17] LABS: HEMOLYSIS 21 (0-50)
[2019-11-20] MEDS: SODIUM CHLORIDE 0.9% 1,000 ML 150 ML IV (03:23)
[2019-11-20 03:30] VITALS: BP 167/92; PULSE 63; RESP 12; O2SAT 96
--- NOTE | 2019-11-20 04:16 | PC.NURSE ---
C-collar removed by Dr. Holm @ [id number] and steristrips applied to right anabaptism and coban pressure dressing applied by Dr. Holm.
== END 2019-11-20 04:10 | disposition home or self-care (01) ==
PROVIDERS: Emergency Provider Emergency Medicine; PCP Student in an Organized Health Care Education/Training Program
DX: S06.0X1A Concussion with loss of consciousness of 30 minutes or less, initial encounter (principal); W19.XXXA Unspecified fall, initial encounter
CPT/HCPCS: 36415; 70450; 71045; 72125; 80053; 82550; 82553; 84484; 85025; 93005; 96360; 99285

== ENCOUNTER → 2019-12-26 09:57 | Outpatient (CLI) | payer MEDICARE, OTHER, SELFPAY ==
--- NOTE | 2019-12-26 | DI.NM.S_ITS ---
PROCEDURE: NM MARY PERF SPECT R&S PHARM Rest and pharmacological stress myocardial perfusion SPECT with gated imaging and ejection fraction RADIOPHARMACEUTICAL: 15 mCi Tc-99m tetrafosmin IV at rest and 25 mCi Tc-99m tetrafosmin IV at peak effect of pharmacological stress. Cgn-vjn-icauanms was performed. INDICATIONS: Atherosclerosis of coronary artery bypass graft(s) TECHNIQUE: Radiopharmaceutical was injected at peak stress test, and also at rest. SPECT images were obtained. SPECT myocardial perfusion images were displayed in short axis, horizontal long axis, and vertical long axis views. Gated images were reviewed using [employer] software. COMPARISON: None. CARDIAC STRESS: Patient started on treadmill but after 4:30 minutes, heart rate only increased to 104 from 84 and couldn't continue due to back and leg pain; The study was switched to pharmacological. A pharmacologic stress test was performed under the supervision of an attending staff, using an infusion of lexiscan . Hemodynamic data: There is normal blood pressure and heart rate response to pharmacologic stress. Symptoms: The patient denied anginal chest pain. Aminophylline: Not used. EKG: No diagnostic changes of ischemia; Rare PVCs. FINDINGS: Raw data: There is good myocardial uptake of radiotracer. No significant motion artifacts. Tkov-rq-vjfqn ratio is 0.55 (normal is less than 0.38 for tetrafosmin tracer). Left ventricle function: Gated images demonstrate normal left ventricular wall thickening except for akinesis of the basal inferior/inferolateral wall which is scarred. No transient ischemic dilation; TID is 0.9 (normal less than 1.3). Left ventricle resting end diastolic volume is 162 mL. Left ventricle stress ejection fraction is 67%; normal range is above 45%. Myocardial perfusion: There is a large, severe perfusion defect in the basal inferior and inferoseptal wall both on rest and stress images. There is also a small, mild defect in inferior apical, mid-apical inferolateral wall both on rest and stress images. Otherwise there is normal distribution of activity in the left ventricular myocardium. No other fixed or reversible perfusion defects. IMPRESSION: -Abnormal study consistent with moderately large transmural scar in basal inferior and inferoseptal wall consistent with infarct in RCA territory and a smaller fixed defect in the apical-mid inferolateral wall. -SSS 12, SRS 13 -Elevated lung to heart ratio. Please correlate clinically. Dictated by: Helio Wilkerson M.D. on 12/26/2019 at 17:04 Approved by: Helio Wilkerson M.D. on 12/26/2019 at 17:14
== END ==
PROVIDERS: PCP Student in an Organized Health Care Education/Training Program; Referring Provider Nurse Practitioner; Visit Provider Nurse Practitioner
DX: I25.810 Atherosclerosis of coronary artery bypass graft(s) without angina pectoris (principal); R94.39 Abnormal result of other cardiovascular function study
CPT/HCPCS: 78452; 93017; A9502; J2785

== ENCOUNTER → 2020-01-06 09:07 | Outpatient (CLI) | payer MEDICARE, OTHER, SELFPAY ==
[2020-01-06 09:54] LABS: Cholesterol 171 mg/dL (140-199); HDL Cholesterol 42 mg/dL (40-60); LDL Cholesterol Calculated 111 mg/dL (<100); Triglycerides 92 mg/dL (35-150)
== END ==
PROVIDERS: PCP Student in an Organized Health Care Education/Training Program; Referring Provider Nurse Practitioner; Visit Provider Nurse Practitioner
DX: I25.810 Atherosclerosis of coronary artery bypass graft(s) without angina pectoris (principal); E78.5 Hyperlipidemia, unspecified
CPT/HCPCS: 36415; 80061

== ENCOUNTER → 2020-11-06 08:52 | Outpatient (CLI) | payer MEDICARE, OTHER, SELFPAY ==
[2020-11-06 09:25] LABS: Hematocrit 43.8 % (41-53); Hemoglobin 14.5 g/dL (13.5-17.5); Mean Corpuscular HGB Conc 33.1 % (30-36); Mean Corpuscular Hemoglobin 30.7 PG (26-34); Mean Corpuscular Volume 92.6 fL (80-100); Platelet Count 174 X10^3/uL (150-400); Red Blood Cell Count 4.73 X10^6/uL (4.5-5.9); Red Cell Distribution Width 13.5 % (11.6-14.8); White Blood Cell Count 7.4 X10^3/uL (4.5-11.0)
[2020-11-06 09:44] LABS: BUN Creatinine Ratio 26.3 (6-22); Blood Urea Nitrogen 26 mg/dL (9-20); Calcium 8.7 mg/dL (8.4-10.2); Carbon Dioxide 30 mmol/L (22-32); Chloride 106 mmol/L (98-107); Estimated Glomerular Filt Rate > 60.0 mL/min (>60); Glucose 105 mg/dL (80-110); HEMOLYSIS < 15 (0-50); Potassium 4.3 mmol/L (3.4-5.1); Sodium 139 mmol/L (137-145)
== END ==
PROVIDERS: PCP Student in an Organized Health Care Education/Training Program; Referring Provider Student in an Organized Health Care Education/Training Program; Visit Provider Student in an Organized Health Care Education/Training Program
DX: I10 Essential (primary) hypertension (principal); I48.91 Unspecified atrial fibrillation
CPT/HCPCS: 36415; 80048; 85027

== ENCOUNTER → 2021-01-26 06:57 | Outpatient (CLI) | payer MEDICARE, OTHER, SELFPAY | PROVIDERS: PCP Student in an Organized Health Care Education/Training Program; Referring Provider Anesthesiology; Visit Provider Anesthesiology | DX: Z01.83 Encounter for blood typing (principal) | CPT/HCPCS: 36415; 86900; 86901 ==

== ENCOUNTER → 2021-02-03 06:41 | Outpatient (CLI) | payer MEDICARE, OTHER, SELFPAY ==
[2021-02-03 08:03] LABS: BUN Creatinine Ratio 30.8 (6-22); Blood Urea Nitrogen 32 mg/dL (9-20); Calcium 9.3 mg/dL (8.4-10.2); Carbon Dioxide 28 mmol/L (22-32); Chloride 105 mmol/L (98-107); Cholesterol 175 mg/dL (140-199); Estimated Glomerular Filt Rate > 60.0 mL/min (>60); Glucose 86 mg/dL (80-110); HDL Cholesterol 48 mg/dL (40-60); HEMOLYSIS < 15 (0-50); LDL Cholesterol Calculated 113 mg/dL (<100); Potassium 4.4 mmol/L (3.4-5.1); Sodium 140 mmol/L (137-145); Triglycerides 71 mg/dL (35-150)
== END ==
PROVIDERS: PCP Student in an Organized Health Care Education/Training Program; Referring Provider Internal Medicine Cardiovascular Disease; Visit Provider Internal Medicine Cardiovascular Disease
DX: I25.810 Atherosclerosis of coronary artery bypass graft(s) without angina pectoris (principal)
CPT/HCPCS: 36415; 80048; 80061

== ENCOUNTER → 2021-10-20 06:43 | Outpatient (CLI) | payer MEDICARE, OTHER, SELFPAY ==
--- NOTE | 2021-10-20 | DI.MRI.S_ITS ---
PROCEDURE: MR CERVICAL SPINE WO CON INDICATIONS: Other spondylosis, cervical region TECHNIQUE: Noncontrast sagittal T1 spin echo and T2 fast spin echo, sagittal STIR, foraminal oblique sagittal T2 fast spin echo, and axial gradient echo or T2 fast spin echo through the cervical spine. COMPARISON: [facility], CT, CT CERVICAL SPINE WO CON, 11/20/2019, 2:49. FINDINGS: Image quality: Excellent. Alignment and Curvature: Straightening of the usual cervical lordosis. Anterolisthesis of C7 on T1 measuring 2 millimeters. Vertebral body heights maintained. Bone Marrow: No suspicious focal marrow signal abnormality or bone marrow edema. Spinal Cord: No cord signal abnormality or syrinx. Regional Soft Tissues: No paravertebral masses. Prevertebral soft tissues are normal in thickness. C2-C3: Mild neural foraminal narrowing on the right due to facet and uncovertebral hypertrophy. No spinal canal stenosis or neural foraminal narrowing on the left. C3-C4: Severe bilateral neural foraminal stenosis. Mild spinal canal stenosis. C4-C5: Moderate spinal canal stenosis. Severe bilateral neural foraminal stenosis. C5-C6: Moderate spinal canal stenosis. The cord is markedly flattened and compressed without an obvious cord signal abnormality. The cord measures a maximum AP dimension of 4 millimeters. Severe bilateral neural foraminal stenosis. C6-C7: Moderate to severe spinal canal stenosis. Severe bilateral neural foraminal narrowing, right greater than left. C7-T1: Moderate spinal canal stenosis and severe neural foraminal stenosis. IMPRESSION: Moderate to severe spinal canal stenosis at C6-C7. Moderate spinal canal stenosis at C4-C5 and C5-C6. Varying degrees of neural foraminal stenosis up to severe bilaterally at multiple levels. Dictated by: Mane Reid M.D. on 10/20/2021 at 14:09 Approved by: Mane Reid M.D. on 10/20/2021 at 14:12
--- NOTE | 2021-10-20 | DI.RAD.S_ITS ---
PROCEDURE: XR CERVICAL SPINE 2V OR 3V INDICATIONS: Other spondylosis, cervical region TECHNIQUE: 3 view(s) of the cervical spine were acquired. COMPARISON: [facility], CT, CT CERVICAL SPINE WO [facility], 11/20/2019, 2:49. FINDINGS: Bones: No acute fractures or dislocations to the C7 level. The lateral masses of C1 appear intact on the odontoid view. No suspicious bony lesions. Severe multilevel cervical spondylosis with degenerative endplate changes, disc space loss, and prominent endplate osteophyte formation. Findings are most pronounced from C3-4 through C6-7. No acute compression fractures. Straightening of cervical lordosis. Multiple median sternotomy wires are noted. The 2 wires are fractured. Stable postsurgical changes of the posterior right occiput. Soft tissues: No prevertebral soft tissue swelling. IMPRESSION: Cervical spine without acute fracture . Severe multilevel cervical spondylosis. Mild straightening of normal cervical lordosis likely related to positioning and/or concurrent muscle spasms. Dictated by: Toro Milton M.D. on 10/20/2021 at 9:07 Approved by: Toro Milton M.D. on 10/20/2021 at 9:13
== END ==
PROVIDERS: PCP Student in an Organized Health Care Education/Training Program; Referring Provider Anesthesiology Pain Medicine; Visit Provider Anesthesiology Pain Medicine
DX: M47.892 Other spondylosis, cervical region (principal); M48.02 Spinal stenosis, cervical region
CPT/HCPCS: 72040; 72141

== ENCOUNTER → 2021-12-29 07:04 | Outpatient (CLI) | payer MEDICARE, OTHER, SELFPAY ==
--- NOTE | 2021-12-29 | DI.RAD.S_ITS ---
PROCEDURE: XR HIP W PEL IF DONE MONICA MIN 4V INDICATIONS: Other spondylosis, lumbosacral region TECHNIQUE: AP pelvis with lateral view(s) of the bilateral hip(s). COMPARISON: None. FINDINGS: Bones: No fractures or dislocations. Pelvic ring appears intact. No suspicious bony lesions. Moderate bilateral degenerative hip joint space narrowing. Small periarticular osteophytes are present. Degenerative changes are present within the lower lumbar spine. Soft tissues: The visualized bowel gas pattern is normal. No suspicious soft tissue calcifications. IMPRESSION: Bilateral hip osteoarthritis. Dictated by: Danielle Shanks M.D. on 12/29/2021 at 12:49 Approved by: Danielle Shanks M.D. on 12/29/2021 at 12:50
--- NOTE | 2021-12-29 | DI.RAD.S_ITS ---
PROCEDURE: XR LUMBAR SPINE 2-3V INDICATIONS: Other spondylosis, lumbosacral region TECHNIQUE: 3 views of the lumbar spine were acquired. COMPARISON: [facility], CR, L-SPINE 2-3 VIEWS, 05/13/2013, 16:06. [facility], MR, MR LUMBAR SPINE WO CON, 12/29/2021, 7:22. FINDINGS: Bones: 5 cov-xyi-fldezll vertebrae are present. There is 6 mm retrolisthesis of L4 on L5. Multilevel severe degenerative disc space narrowing is present with subchondral sclerosis. Multilevel bridging osteophytes are present. Severe foraminal narrowing is present at L1-L2, L2-3 and L5-S1. No vertebral body compression fractures. No suspicious bony lesions. Soft tissues: Overlying bowel gas pattern is normal. No suspicious soft tissue calcifications. IMPRESSION: Prominent multilevel degenerative changes as above. Dictated by: Danielle Shanks M.D. on 12/29/2021 at 12:51 Approved by: Danielle Shanks M.D. on 12/29/2021 at 12:52
--- NOTE | 2021-12-29 | DI.MRI.S_ITS ---
PROCEDURE: MR LUMBAR SPINE WO CON INDICATIONS: Other spondylosis, lumbosacral region TECHNIQUE: Noncontrast sagittal T1 spin echo and T2 fast echo, sagittal STIR, and T2 fast spin echo through the lumbar spine. In cases with scoliosis, additional coronal T2 fast spin echo may be performed. COMPARISON: [facility], MR, MR LUMBAR SPINE WO CON, 04/18/2019, 8:50. [facility], CR, XR LUMBAR SPINE 2-3V, 12/29/2021, 7:37. FINDINGS: Image quality: Excellent. Alignment and Curvature: Again noted is mild dextroscoliosis centered L2-L3. Trace degenerative retrolisthesis of L1 on L2. Bone Marrow: Marrow is of normal overall signal. No acute vertebral body compression fractures. Spinal Cord: Conus medullaris terminates at the L1 level. Visualized cord demonstrates normal signal and size. Paraspinous Soft Tissues: No paravertebral masses. T12-L1: Unchanged moderate right paracentral disc protrusion impinging on right-sided nerve roots near the conus. Reference image 7 of series 6. No significant foraminal stenosis. L1-L2: Unchanged severe disc height loss. Diffuse posterior disc post osteophyte. Unchanged moderate canal stenosis. Bilateral facet hypertrophy. Moderate right and moderate to severe left foraminal narrowing are unchanged. There is flattening deformity on the bilateral exiting L1 nerve roots. L2-L3: Severe disc height loss. Posterior osteophyte. Bilateral facet hypertrophy, with unchanged moderate central canal stenosis. There is mild right foraminal narrowing and moderate to severe left foraminal narrowing. L3-L4: Severe disc height loss. Broad-based right paracentral and posterior posterior lateral disc bulge. Prominent bilateral facet hypertrophy. Slight progression of canal stenosis, severe. Reference image 21 of series 6. Moderate right foraminal narrowing. Severe left foraminal narrowing, image part secondary to a left foraminal osteophyte with resultant left L3 nerve root impingement. L4-L5: Diffuse disc bulge with mild right paracentral disc protrusion. Prominent right facet hypertrophy. Left facet hypertrophy as well. Severe stenosis of the right side of the canal and moderate central canal stenosis. Reference image 25/6. Severe right foraminal narrowing with right L4 foraminal nerve root impingement. Mild to moderate left foraminal narrowing. L5-S1: Disc bulge. Bilateral facet hypertrophy. Mild canal stenosis. Moderate bilateral foraminal narrowing with flattening deformity on the exiting bilateral L5 nerve roots. IMPRESSION: 1. Extensive degenerative change, with significant multilevel facet arthropathy and degenerative disc disease. 2. Multilevel canal stenosis, moderate at L1-L2, moderate at L2-L3, and severe at L3-L4. At L4-L5, there is severe stenosis of the right side of the canal and moderate central canal stenosis. There is mild canal stenosis at L5-S1, 3. Slight progression of findings at L3-L4. 4. Significant multilevel foraminal narrowing as described above. Dictated by: Davis Coats M.D. on 12/29/2021 at 8:36 Approved by: Davis Coats M.D. on 12/29/2021 at 8:52
[2021-12-29 10:29] LABS: Hemoglobin A1C% w Est Avg Glu 5.3 % (4.0-6.0)
[2021-12-29 10:39] LABS: Alanine Aminotransferase 26 IU/L (<50); Albumin 4.3 g/dL (3.5-5.0); Albumin Globulin Ratio 1.5 (1.0-2.8); Alkaline Phosphatase 71 U/L (38-126); Aspartate Aminotransferase 30 IU/L (17-59); BUN Creatinine Ratio 29.4 (6-22); Bilirubin Total 0.5 mg/dL (0.2-1.3); Blood Urea Nitrogen 32 mg/dL (9-20); C-Reactive Protein Quant < 0.5 mg/dL (<1.0); Carbon Dioxide 29 mmol/L (22-32); Chloride 105 mmol/L (98-107); Cholesterol 174 mg/dL (140-199); Estimated Glomerular Filt Rate > 60.0 mL/min (>60); Globulin 2.9 g/dL (1.7-4.1); Glucose 84 mg/dL (80-110); HDL Cholesterol 49 mg/dL (40-60); HEMOLYSIS < 15 (0-50); LDL Cholesterol Calculated 111 mg/dL (<100); Magnesium 2.4 mg/dL (1.6-2.3); Potassium 4.9 mmol/L (3.4-5.1); Sodium 143 mmol/L (137-145); Total Protein 7.2 g/dL (6.3-8.2); Triglycerides 70 mg/dL (35-150)
[2021-12-29 10:42] LABS: High Sensitivity CRP - Cardiac 3.4 mg/L (1.0-3.0)
[2021-12-30 21:30] LABS: PSA Free % 18.5 % (.); PSA, Total 5.2 ng/mL (0.0-4.0)
== END ==
PROVIDERS: PCP Student in an Organized Health Care Education/Training Program; Referring Provider Anesthesiology Pain Medicine; Visit Provider Anesthesiology Pain Medicine
DX: M47.897 Other spondylosis, lumbosacral region (principal); M48.061 Spinal stenosis, lumbar region without neurogenic claudication; M48.07 Spinal stenosis, lumbosacral region; M51.36 Other intervertebral disc degeneration, lumbar region; M51.37 Other intervertebral disc degeneration, lumbosacral region; M16.0 Bilateral primary osteoarthritis of hip; Z13.228 Encounter for screening for other metabolic disorders; Z13.220 Encounter for screening for lipoid disorders; Z12.5 Encounter for screening for malignant neoplasm of prostate; H93.3X2 Disorders of left acoustic nerve; M47.892 Other spondylosis, cervical region; M25.559 Pain in unspecified hip
CPT/HCPCS: 36415; 72100; 72148; 73522; 80053; 80061; 83036; 83735; 84153; 84154; 86140; G0103

== ENCOUNTER → 2022-05-10 09:00 | Outpatient (CLI) | payer MEDICARE, OTHER, SELFPAY ==
--- NOTE | 2022-05-10 | DI.ECHO.S_ITS ---
[facility] +---------+ : : [address] [place] : : : : [id number] : : : : Phone: [phone]+ Echocardiogram Report + + :Name: ADELAIDA DESHPANDE Study Date: 05/10/2022 Height: 71 in : :[facility] ReadingLocation: Weight: 228 lb : : Gender: Male BSA: 2.2 m2 : :: 1945 Age: 76 yrs BP: 163/100 mmHg: :Reason For Study: THORACIC AORTIC ECTASIA : :Ordering Physician: RENA, : :DAMIAN BAKER Performed By: Gudelia Magaña : :Referring: DAMIAN CHASE : + + Interpretation Summary The left ventricle is normal in size. Left ventricular ejection fraction is estimated to be 50 +/- 5%. Previously LVEF about 50 to 55%. There is a significant dyssynchronous contraction pattern during frequent PVCs. There is thinning and akinesis of the proximal inferior wall and inferoseptum with hypokinesis in the proximal and mid posterior wall. This is unchanged compared to the previous study. The right ventricle is at the upper limits of normal in size. The right ventricular systolic function is normal. No significant valvular pathology seen. The ascending aorta is moderately enlarged. 4.2 cm in diameter without any significant change from the previous study. Mild atherosclerotic plaque(s) in the aortic arch. The IVC is of normal diameter and collapses greater than 50% with a sniff. This suggests a low right atrial pressure of 3 mm Hg. Procedure: A two-dimensional transthoracic echocardiogram with color flow and Doppler was performed. The study quality was technically adequate. Comparison is made with the echocardiogram of 10/10/2019. Frequent ectopy. The heart rate ranged between 60-65 bpm during the study. The patient was in normal sinus rhythm during the exam. The patient had frequent PVCs during the exam. Left Ventricle: The left ventricle is normal in size. The estimated left ventricular end diastolic volume is 97 ml. Left ventricular wall thickness is mildly increased. There is no thrombus. Left ventricular ejection fraction is estimated to be 50 +/- 5%. There is thinning and akinesis of the proximal inferior wall and inferoseptum with hypokinesis in the proximal and mid posterior wall. This is unchanged compared to the previous study. Diastolic parameters suggest a relaxation abnormality of the left ventricle, consistent with probable normal filling pressures. Right Ventricle: The right ventricle is at the upper limits of normal in size. The right ventricular systolic function is normal. Atria: The left atrium is mildly dilated. There has been no significant change since the previous study. The right atrium is borderline dilated. There is no Doppler evidence for an interatrial shunt. The atrial septum is aneurysmal. Mitral Valve: The mitral valve leaflets appear mildly thickened, but open well. There is mild mitral annular calcification. There is mild mitral regurgitation. Aortic Valve: The aortic valve is trileaflet. The aortic valve is mildly calcified. There is no aortic valve stenosis. There is mild aortic regurgitation. Tricuspid Valve: There is tricuspid annular calcification. There is trace tricuspid regurgitation. Pulmonary artery pressures cannot be estimated because of the lack of a measurable TR jet velocity. Pulmonic Valve: The pulmonic valve leaflets are thin and pliable; valve motion is normal. There is trace pulmonic regurgitation. Great Vessels: The aortic root is mildly dilated. The ascending aorta is moderately enlarged. Mild atherosclerotic plaque(s) in the aortic arch. The IVC is of normal diameter and collapses greater than 50% with a sniff. This suggests a low right atrial pressure of 3 mm Hg. Pericardium/ Pleura There is no pericardial effusion. There is an anterior echo-free space consistent with a fat pad. There is no pleural effusion. MMode/2D Measurements & Calculations LVIDd: 5.2 cm LVOT diam: 2.2 cm LVIDs: 4.3 cm Ao root diam: 4.3 cm FS: 17.3 % asc Aorta Diam: 4.2 cm EPSS: 1.9 cm Ao Arch Diam (Prox Trans): 3.4 cm IVSd: 1.1 cm LVPWd: 1.3 cm LV marroquin. diameter/BSA (cm/m^2): 2.3 LV sys. diameter/BSA (cm/m^2): 1.9 LA A2 area: 30.6 cm2 RA long axis: 6.6 cm LA A4 area: 23.4 cm2 RA area: 24.0 cm2 LA length (vol): 6.9 cm RA vol: 74.4 ml LA vol: 88.8 ml RA : 33.4 ml/m2 LA vol index: 39.8 ml/m2 IVC diam: 1.7 cm RVD1 (basal): 4.0 cm RVD2 (mid): 3.5 cm TAPSE: 2.1 cm Doppler Measurements & Calculations Ao V2 max: 153.2 cm/sec LVOT Max Rubens: 111.7 cm/sec Ao V2 mean: 94.3 cm/sec LV V1 max P.0 mmHg Ao max P.4 mmHg LV V1 VTI: 26.7 cm Ao mean P.2 mmHg HERBER(I,D): 3.3 cm2 Ao V2 VTI: 29.8 cm HERBER(V,D): 2.7 cm2 sev ratio: 0.90 HERBER indexed to BSA (cm^2/m^2): 1.5 MV E max rubens: 67.0 cm/sec PA V2 max: 91.4 cm/sec MV A max rubens: 113.1 cm/sec PA V2 mean: 65.1 cm/sec MV E/A: 0.59 PA mean P.9 mmHg Med Peak E' Rubens: 6.5 cm/sec PA pr(Accel): 34.5 mmHg E/E' med: 10.2 Lat Peak E' Rubens: 7.0 cm/sec E/E' lat: 9.5 E/e' average: 9.9 MV dec time: 0.19 sec SV(LVOT): 99.7 ml Reading Physician:05:31 PM
== END ==
PROVIDERS: PCP Student in an Organized Health Care Education/Training Program; Referring Provider Nurse Practitioner Family; Visit Provider Nurse Practitioner Family
DX: I77.810 Thoracic aortic ectasia (principal); I08.0 Rheumatic disorders of both mitral and aortic valves; I70.0 Atherosclerosis of aorta
CPT/HCPCS: 93306

== ENCOUNTER 2022-11-02 13:34 | Outpatient (CLI) | payer MEDICARE, OTHER, SELFPAY ==
[2022-11-02] VITALS (7 sets, daily range): BP systolic 127–189; BP diastolic 83–110; PULSE 65–78; RESP 16–24; TEMP 36.4; O2SAT 96–99
--- NOTE | 2022-11-02 13:36 | DI.RAD.S_ITS ---
PROCEDURE: PAIN C/T FACET INJ/BLK 1ST L INDICATIONS: SPINAL STENOSIS COMPARISON: [facility], CR, XR CERVICAL SPINE 2V OR 3V, 10/20/2021, 7:33. FINDINGS: Fluoroscopic spot filming was performed to verify placement of spinal needles on the left at the C3, C4, and C5 levels, as labeled on the films. Appropriate location of the needle tips was confirmed by injection of iodinated contrast. IMPRESSION: Intraprocedural examination demonstrating appropriate positions of the needles. Dictated by: Sal Zaldivar M.D. on 11/02/2022 at 17:31 Approved by: Sal Zaldivar M.D. on 11/02/2022 at 17:32
[2022-11-02] MEDS: BUPIVACAINE 0.5% (PF) 30 ML VIAL 5 ML INJ (14:41)
[2022-11-02] MEDS: IOPAMIDOL 15 ML VIAL 3 ML INJ (14:41)
--- NOTE | 2022-11-02 15:17 | PC.NURSE ---
MD aware of patients b/p. Patient encouraged to monitor b/p at home and notify PCP. If experiences chest pain, SOB or h/a encouraged to see care and ER
--- NOTE | 2022-11-02 16:58 | P.PCN_ITS ---
Date/Time/Diagnoses Date of procedure: 11/02/22 Time of procedure: 14:30 Procedure Notes Physician: Jeromy Ku Total Fluoroscopy time (seconds): 21 Total sedation minutes: 0 Procedure in detail & Post-procedure care: Left C3, 4, 5 Cervical Medial Branch Blocks Indications: Romel is referred by Dr. New for treatment of cervical sp ondylosis with cervical pain. Preoperative diagnosis: Left cervical spondylosis Postoperative diagnosis: Same Pre-procedure History: Patient demonstrates today moderate to severe non- radicular neck pain without neurologic deficit aggravated by hyperextension yes Neck pain greater than arm pain? yes Patient today has tenderness over the suspected joint(s) yes History of post-traumatic injury? now Hypertrophic arthropathy yes Neck pain associated with suspected motion segment instability, hypermobility or pseudoarthrosis no Pre-testing pain score (VAS): 8/10 Focused Examination: Ax3 Mood and affect are normal Vital Signs: VSS ASA: 2 Consent: Following review of allergies and potential side effects/complications, including, but not necessarily limited to, infection, allergic reaction, local tissue breakdown, stroke, temporary or permanent nerve injury, paralysis, and possible , the patient indicated that they understood and agreed to proceed.? An informed consent document was signed by the patient, witnessed by a nurse and placed in the patient's chart.? Additionally, other treatment options including medications and physical therapy were reviewed with the patient. All questions were answered. Site was then marked. Anesthesia: Local Position: Prone Monitoring: NIBP, Pulse oximetry, 3 lead EKG Needle used: 22G 3.5 inch spinal needle Contrast: Isovue 300M Injectate: 0.5% bupivacaine 0.5 mL per site Procedure: The patient was brought into the procedure room and positioned into the prone position. Skin was prepped with a Chloraprep solution, allowed to air dry, and then draped in sterile fashion.? The left C3, 4, 5 facet joints were visually identified with fluoroscopy. Lidocaine 1% was used to anesthetize the skin over each target destination with a 25ga needle. A 22 ga, 3.5 inch spinal needle was advanced to the location of the medial branch at the junction of the superior articular process and the transverse process using intermittent fluoroscopy in the AP view. Isovue 300M contrast 0.2ml was injected at each level outlining the borders for each level in the AP/lateral views and confirmed in the foraminal view. There was no evidence of vascular or intrathecal uptake. The above injectate was slowly injected at each target destination. At the end of the procedure the needles were withdrawn and Band-Aids were applied for a dressing. Post Procedure: Patient was taken to the recovery and monitored. The patient was provided a Pain Log to continue to record the patient's response to the target- specific procedure prior to the patient's follow-up visit with the referring physician. Patient was stable upon discharge. Detailed post procedure instructions were provided. Patient was asked to call in the event of worsening pain, fever, weakness, numbness or bladder or bowel incontinence. Postoperatively, the patient demonstrates the following changes with hyperextension and with tenderness over the suspected joint(s). Provacative testing using the facet loading test Right side Left side Directly before the block ?VAS (0-10) = 8/10 VAS (0-10) = 8/10 5 minutes after the block VAS (0-10) = 2/10 VAS (0-10) = 2/10 Percentage relief obtained with this diagnostic block 75 % 75 % Any improved physical functioning directly after the blocks? Range of motion Based on the medial branches blocked today, if the patient meets insurance criteria for radiofrequency, the treatment should result in the denervation of the left C3-4 and C 4-5 facet joint nerves. We would expect to denervate a total of 2 facets during the radiofrequency ablation.
== END 2022-11-02 15:18 | disposition home or self-care (01) ==
LOC: RAD 13:36
PROVIDERS: PCP Student in an Organized Health Care Education/Training Program; Referring Provider Anesthesiology; Visit Provider Anesthesiology
DX: M47.812 Spondylosis without myelopathy or radiculopathy, cervical region (principal)
CPT/HCPCS: 64490; 64491; 64492

== ENCOUNTER 2022-11-16 12:17 | Outpatient (CLI) | payer MEDICARE, OTHER, SELFPAY ==
[2022-11-16] VITALS (11 sets, daily range): BP systolic 113–188; BP diastolic 75–100; PULSE 57–70; RESP 14–20; TEMP 36.8; O2SAT 96–100
--- NOTE | 2022-11-16 12:19 | DI.RAD.S_ITS ---
PROCEDURE: PAIN C/T FACET INJ/BLK 1ST L INDICATIONS: SPINAL STENOSIS COMPARISON: [facility], , PAIN C/T FACET INJ/BLK 1ST L, 11/02/2022, 15:42. FINDINGS: Fluoroscopic spot filming was performed to verify placement of spinal needles on the left at the C3, C4, and C5 levels, as labeled on the films. Appropriate location of the needle tips was confirmed by injection of iodinated contrast. IMPRESSION: Intraprocedural examination demonstrating appropriate positions of the needles. Dictated by: Sal Zaldivar M.D. on 11/16/2022 at 14:07 Approved by: Sal Zaldivar M.D. on 11/16/2022 at 14:08
[2022-11-16] MEDS: MIDAZOLAM 2 MG/2 ML VIAL 4 MG IV (13:25)
[2022-11-16] MEDS: IOPAMIDOL 15 ML VIAL 3 ML INJ (13:32)
[2022-11-16] MEDS: LIDOCAINE 2% INJ MDV 20ML 20 ML INJ (13:48)
--- NOTE | 2022-11-16 14:37 | P.PCN_ITS ---
Date/Time/Diagnoses Date of procedure: 11/16/22 Time of procedure: 13:36 Procedure Notes Physician: Jeromy Ku Total Fluoroscopy time (seconds): 22 Total sedation minutes: 22 Procedure in detail & Post-procedure care: Left C3,4,5 Cervical Medial Branch Blocks Indications: Romel is referred by Dr. New for treatment of cervical spon dylosis with cervical pain. Preoperative diagnosis: Left cervical spondylosis Postoperative diagnosis: Same Pre-procedure History: Patient demonstrates today moderate to severe non- radicular neck pain without neurologic deficit aggravated by hyperextension Yes Neck pain greater than arm pain? Yes Patient today has tenderness over the suspected joint(s) Yes History of post-traumatic injury? No Hypertrophic arthropathy Yes Neck pain associated with suspected motion segment instability, hypermobility or pseudoarthrosis No Pre-testing pain score (VAS): 9/10 Focused Examination: Ax3 Mood and affect are normal Vital Signs: VSS ASA: 3 Consent: Following review of allergies and potential side effects/complications, including, but not necessarily limited to, infection, allergic reaction, local tissue breakdown, stroke, temporary or permanent nerve injury, paralysis, and possible , the patient indicated that they understood and agreed to proceed.? An informed consent document was signed by the patient, witnessed by a nurse and placed in the patient's chart.? Additionally, other treatment options including medications and physical therapy were reviewed with the patient. All questions were answered. Site was then marked. Anesthesia: Local and midazolam 4mg Position: Prone Monitoring: NIBP, Pulse oximetry, 3 lead EKG Needle used: 22G 3.5 inch spinal needle Contrast: Isovue 300M Injectate: 2% Lidocaine 0.5 mL/site Procedure: The patient was brought into the procedure room and positioned into the prone position. Skin was prepped with a Chloraprep solution, allowed to air dry, and then draped in sterile fashion.?After review of previous anesthetic history and IV conscious sedation, the patient was deemed safe to proceed with today's procedure with IV conscious sedation. IV sedation was accomplished with versed 4mg administered by the RN after order by Dr. Ku. Sedation was titrated to patient comfort during the course of the procedure. Patient remained responsive to all verbal commands. The left C3,4,5 facet joints were visually identified with fluoroscopy. Lidocaine 1% was used to anesthetize the skin over each target destination with a 25ga needle. A 22 ga, 3.5 inch spinal needle was advanced to the location of the medial branch at the junction of the superior articular process and the transverse process using intermittent fluoroscopy in the AP view. Isovue 300M contrast 0.2ml was injected at each level outlining the borders for each level in the AP/lateral views and confirmed in the foraminal view. There was no evidence of vascular or intrathecal uptake. The above injectate was slowly injected at each target destination. At the end of the procedure the needles were withdrawn and Band-Aids were applied for a dressing. Post Procedure: Patient was taken to the recovery and monitored. The patient was provided a Pain Log to continue to record the patient's response to the target- specific procedure prior to the patient's follow-up visit with the referring physician. Patient was stable upon discharge. Detailed post procedure instructions were provided. Patient was asked to call in the event of worsening pain, fever, weakness, numbness or bladder or bowel incontinence. Postoperatively, the patient demonstrates the following changes with hyperextension and with tenderness over the suspected joint(s). Provacative testing using the facet loading test Right side Left side Directly before the block ?VAS (0-10) = 9/10 VAS (0-10) = 9/10 5 minutes after the block VAS (0-10) = 0/10 VAS (0-10) = 0/10 Percentage relief obtained with this diagnostic block [percent]% [percent]% Any improved physical functioning directly after the blocks? ROM Based on the medial branches blocked today, if the patient meets insurance criteria for radiofrequency, the treatment should result in the denervation of the left C3-4 and C4-5 facet joint nerves. We would expect to denervate a total of 2 facets during the radiofrequency ablation.
== END 2022-11-16 14:05 | disposition home or self-care (01) ==
LOC: RAD 12:18
PROVIDERS: PCP Student in an Organized Health Care Education/Training Program; Referring Provider Anesthesiology; Visit Provider Anesthesiology
DX: M47.812 Spondylosis without myelopathy or radiculopathy, cervical region (principal)
CPT/HCPCS: 64490; 64491; 99152; 99153; J2250

== ENCOUNTER 2022-12-07 07:13 | Outpatient (CLI) | payer MEDICARE, OTHER, SELFPAY ==
[2022-12-07] VITALS (12 sets, daily range): BP systolic 133–188; BP diastolic 86–118; PULSE 41–82; RESP 13–23; TEMP 37.1; O2SAT 94–99
--- NOTE | 2022-12-07 07:16 | DI.RAD.S_ITS ---
PROCEDURE: PAIN C/T MEDIAL N RFA INDICATIONS: SPONDYLOSIS COMPARISON: None. FINDINGS: Fluoroscopic spot filming was performed to verify placement of spinal needles at the left C3, C4, and C5 level(s), as labeled on the films. IMPRESSION: Needle placement on the left at C3, C4, and C5 for cervical spine procedure. Dictated by: Catie Romero M.D. on 12/07/2022 at 16:31 Approved by: Catie Romero M.D. on 12/07/2022 at 16:32
[2022-12-07] MEDS: MIDAZOLAM 5 MG/5 ML VIAL 2 MG IV (08:08)
[2022-12-07] MEDS: LIDOCAINE 2% INJ MDV 20ML 20 ML INJ (08:17)
[2022-12-07] MEDS: DEXAMETHASONE 10 MG/ML VIAL INJ (08:17)
[2022-12-07] MEDS: BUPIVACAINE 0.5% (PF) 10 ML VIAL 2 ML INJ (08:19)
--- NOTE | 2022-12-07 10:42 | P.PCN_ITS ---
Date/Time/Diagnoses Date of procedure: 12/07/22 Time of procedure: 08:00 Procedure Notes Physician: Jeromy Ku Total Fluoroscopy time (seconds): 39 Total sedation minutes: 43 Procedure in detail & Post-procedure care: Left C3, 4, 5 Cervical Medial Branch Radio Frequency Ablation Indications: Romel is referred by Dr. New for treatment of cervical spondylosis with cervical pain. Preoperative diagnosis: Left cervical spondylosis Postoperative diagnosis: Same Pre-procedure History: Patient demonstrates today moderate to severe non-radicular neck pain without neurologic deficit aggravated by hyperextension yes Neck pain greater than arm pain? yes Patient today has tenderness over the suspected joint(s) yes History of post-traumatic injury? no Hypertrophic arthropathy yes Neck pain associated with suspected motion segment instability, hypermobility or pseudoarthrosis no Focused Examination: Ax3 Mood and affect are normal Vital Signs: VSS ASA: 2 Consent: Following review of allergies and potential side effects/complications, including, but not necessarily limited to, infection, allergic reaction, local tissue breakdown, stroke, temporary or permanent nerve injury, paralysis, and possible , the patient indicated that they understood and agreed to proceed.? An informed consent document was signed by the patient, witnessed by a nurse and placed in the patient's chart.? Additionally, other treatment options including medications and physical therapy were reviewed with the patient. All questions were answered. Site was then marked. Position: Prone Monitoring: NIBP, Pulse oximetry, 3 lead EKG Needle used: 20 guage, 100 mm, 10 mm active tip Anesthesia: Local with IV sedation. After review of previous anesthetic history and IV conscious sedation, the patient was deemed safe to proceed with today's procedure with IV conscious sedation. IV sedation was accomplished with versed 2mg administered by the RN after order by Dr. Ku. Sedation was titrated to patient comfort during the course of the procedure. Patient remained responsive to all verbal commands. Procedure: The patient was brought into the procedure room and positioned into the prone position. Skin was prepped with a Chloraprep solution, allowed to air dry, and then draped in sterile fashion.? The left C3-4 and C4-5 facet joints were visually identified with fluoroscopy. Lidocaine 1% was used to anesthetize the skin over each target destination with a 25ga needle. The target point for the treatment was the articular pillar of the left C3, 4, 5 vertebrae. The needle was directed to each of these sites using a posterior approach and under fluoroscopic guidance. AP, foraminal and lateral radiographs were taken to confirm proper needle placement. No paresthesias were noted. The stylet was removed and the radiofrequency probe was inserted through the cannula. Each level was individually tested. The impedance was between 300 and 800 ohms at all levels.? Sensory stimulation up to 2V elicited neck and trapezius region discomfort and no arm or leg discomfort. Motor stimulation was then carried out at 2Hz and minimally up to 2V. There was no evidence of motor stimulation in the upper extremities. After negative aspiration, 1ml of 2% lidocaine was injected at each of the levels and radiofrequency denervation carried out using 80 degrees Celsius for 90 seconds. During the procedure there was no pain elicited in the extremities. After ablation, a mixture of 10 mg dexamethasone with 0.25% bupivacaine 2 mL was injected in equal amounts among the sites. At the end of the procedure the needles were withdrawn and Band-Aids were applied for a dressing. This procedure is expected to denervate the left C3-4 and C4-5 facet joints. Post Procedure: Patient was taken to the recovery and monitored. The patient was provided a Pain Log to continue to record the patient's response to the target- specific procedure prior to the patient's follow-up visit with the referring physician. Patient was stable upon discharge. Detailed post procedure instructions were provided. Patient was asked to call in the event of worsening pain, fever, weakness, numbness or bladder or bowel incontinence. Complications: None
== END 2022-12-07 09:06 | disposition home or self-care (01) ==
LOC: RAD 07:14
PROVIDERS: PCP Student in an Organized Health Care Education/Training Program; Referring Provider Anesthesiology; Visit Provider Anesthesiology
DX: M47.812 Spondylosis without myelopathy or radiculopathy, cervical region (principal)
CPT/HCPCS: 64633; 64634; 99152; 99153; J1100; J2250

== ENCOUNTER → 2023-03-05 06:26 | Outpatient (CLI) | payer MEDICARE, OTHER, SELFPAY ==
[2023-03-05 07:51] LABS: Add Manual Diff / Slide Review NO; Basophils Absolute Auto 100 /uL (0-100); Basophils Percent Auto 1.4 % (0-2); Eosinophils Absolute Auto 200 /uL (0-450); Eosinophils Percent Auto 2.9 % (2-4); Hematocrit 42.9 % (41-53); Hemoglobin 14.7 g/dL (13.5-17.5); Lymphocytes Absolute Auto 1800 /uL (1100-4500); Lymphocytes Percent Auto 26.5 % (25-40); Mean Corpuscular HGB Conc 34.2 % (30-36); Mean Corpuscular Hemoglobin 31.2 PG (26-34); Mean Corpuscular Volume 91.4 fL (80-100); Monocytes Absolute Auto 800 /uL (0-900); Monocytes Percent Auto 12.3 % (3-14); Neutrophils Absolute Auto 3900 /uL (1500-7000); Neutrophils Percent Auto 56.9 % (50-75); Platelet Count 189 X10^3/uL (150-400); Red Cell Distribution Width 13.6 % (11.6-14.8); White Blood Cell Count 6.8 X10^3/uL (4.5-11.0)
[2023-03-05 08:39] LABS: BUN Creatinine Ratio 22.3 (6-22); Blood Urea Nitrogen 27 mg/dL (9-20); Carbon Dioxide 28 mmol/L (22-32); Chloride 103 mmol/L (98-107); Cholesterol 220 mg/dL (140-199); Estimated Glomerular Filt Rate > 60 mL/min (>60); Glucose 88 mg/dL (80-110); HDL Cholesterol 43 mg/dL (40-60); HEMOLYSIS < 15 (0-50); LDL Cholesterol Calculated 156 mg/dL (<100); Potassium 4.7 mmol/L (3.4-5.1); Sodium 139 mmol/L (137-145); Triglycerides 105 mg/dL (35-150)
[2023-03-06 07:14] LABS: Labcorp Hemoglobin (Hb) A1c 5.5 % (4.8-5.6)
== END ==
PROVIDERS: PCP Student in an Organized Health Care Education/Training Program; Referring Provider Internal Medicine Cardiovascular Disease; Visit Provider Internal Medicine Cardiovascular Disease
DX: I10 Essential (primary) hypertension (principal); I25.810 Atherosclerosis of coronary artery bypass graft(s) without angina pectoris; I21.A1 Myocardial infarction type 2
CPT/HCPCS: 36415; 80048; 80061; 83036; 85025

== ENCOUNTER → 2023-05-09 12:18 | Outpatient (CLI) | payer MEDICARE, OTHER, SELFPAY ==
--- NOTE | 2023-05-09 | DI.ECHO.S_ITS ---
[facility]---------[facility] +---------+ : : [address] [place] : : : : [id number] : : : : Phone: [phone] Echocardiogram Report + + :Name: ADELAIDA DESHPANDE Study Date: 05/09/2023 Height: 71 in : :[facility] ReadingLocation: Weight: 232 lb : : Gender: Male BSA: 2.2 m2 : :: 1945 Age: 77 yrs BP: 166/95 mmHg: :Reason For Study: THORACIC AORTIC ECTASIA : :Ordering Physician: FRANSISCO, : :LADAN Performed By: Gudelia Magaña : :Referring: LADAN FORBES : + + Interpretation Summary 1) Normal left ventricular size with mildly reduced systolic function (EF 45- 50%). 2) Grossly, normal right ventricular size with low normal function. 3) There is mild aortic regurgitation. 4) The aortic root is mildly dilated at 4.3cm. The ascending aorta is mildly enlarged at 4.2cm. 5) Hypertension present during the study (BP 166/95mmHg). 6) Compared to the Echo done 05/10/2022, LVEF has decreased slightly from about 50% to 45-50% on this study. Procedure: A two-dimensional transthoracic echocardiogram with color flow and Doppler was performed. The study quality was technically adequate. Comparison is made with the echocardiogram of 05/10/2022. The patient had occasional PVCs during the exam. The patient was in sinus rhythm with heart rates between 59-65 bpm during the exam. Left Ventricle: The left ventricle is normal in size. Left ventricular wall thickness is mildly increased. The ejection fraction is estimated to be 45- 50%. There is mild global hypokinesis of the left ventricle. Diastolic parameters suggest a relaxation abnormality of the left ventricle, consistent with probable normal filling pressures. Right Ventricle: The right ventricle is grossly normal size. Right ventricular systolic function is at the lower limits of normal. Atria: The left atrial size is normal. Right atrial size is normal. There is no Doppler evidence for an interatrial shunt. Mitral Valve: The mitral valve is normal in structure and function. There is mild mitral regurgitation. Aortic Valve: The aortic valve is trileaflet. The aortic valve is mildly calcified. There is no aortic valve stenosis. There is mild aortic regurgitation. Tricuspid Valve: The tricuspid valve is normal in structure and function. There is trace tricuspid regurgitation. Pulmonary artery pressures cannot be estimated because of the lack of a measurable TR jet velocity. Pulmonic Valve: The pulmonic valve leaflets are thin and pliable; valve motion is normal. There is mild pulmonic regurgitation. Great Vessels: The aortic root is mildly dilated. The ascending aorta is mildly enlarged. The IVC is of normal diameter and collapses greater than 50% with a sniff. This suggests a low right atrial pressure of 3 mm Hg. Pericardium/ Pleura There is no pericardial effusion. There is no pleural effusion. MMode/2D Measurements & Calculations LVIDd: 5.6 cm LVOT diam: 2.3 cm LVIDs: 4.3 cm Ao root diam: 4.3 cm FS: 23.5 % asc Aorta Diam: 4.2 cm EPSS: 1.9 cm Ao Arch Diam (Prox Trans): 3.0 cm IVSd: 0.89 cm LVPWd: 1.2 cm LV marroquin. diameter/BSA (cm/m^2): 2.5 LV sys. diameter/BSA (cm/m^2): 1.9 LA A2 area: 26.7 cm2 RA long axis: 5.6 cm LA A4 area: 17.9 cm2 RA area: 17.7 cm2 LA length (vol): 5.6 cm RA vol: 47.4 ml LA vol: 72.8 ml RA : 21.1 ml/m2 LA vol index: 32.4 ml/m2 IVC diam: 1.1 cm RVD1 (basal): 3.2 cm TAPSE: 1.7 cm Doppler Measurements & Calculations Ao V2 max: 139.7 cm/sec LVOT Max Rubens: 80.1 cm/sec Ao V2 mean: 100.2 cm/sec LV V1 max P.6 mmHg Ao max P.8 mmHg LV V1 VTI: 18.9 cm Ao mean P.5 mmHg HERBER(I,D): 2.9 cm2 Ao V2 VTI: 27.7 cm HERBER(V,D): 2.4 cm2 sev ratio: 0.68 HERBER indexed to BSA (cm^2/m^2): 1.3 MV E max rubens: 50.7 cm/sec PA V2 max: 89.1 cm/sec MV A max rubens: 119.2 cm/sec PA V2 mean: 66.2 cm/sec MV E/A: 0.42 PA mean P.9 mmHg Med Peak E' Rubens: 3.8 cm/sec PA pr(Accel): 41.3 mmHg E/E' med: 13.5 Lat Peak E' Rubens: 5.9 cm/sec E/E' lat: 8.7 E/e' average: 11.1 MV dec time: 0.37 sec SV(LVOT): 80.7 ml Reading Physician:03:39 PM
== END ==
PROVIDERS: PCP Pediatrics; Referring Provider Internal Medicine Cardiovascular Disease; Visit Provider Internal Medicine Cardiovascular Disease
DX: I77.810 Thoracic aortic ectasia (principal); I08.0 Rheumatic disorders of both mitral and aortic valves; I77.89 Other specified disorders of arteries and arterioles
CPT/HCPCS: 93306

== ENCOUNTER → 2023-07-11 06:44 | Outpatient (CLI) | payer MEDICARE, OTHER, SELFPAY ==
[2023-07-11 09:52] LABS: Cholesterol 205 mg/dL (140-199); HDL Cholesterol 47 mg/dL (40-60); LDL Cholesterol Calculated 143 mg/dL (<100); Triglycerides 73 mg/dL (35-150)
== END ==
PROVIDERS: PCP Pediatrics; Referring Provider Internal Medicine Cardiovascular Disease; Visit Provider Internal Medicine Cardiovascular Disease
DX: E78.5 Hyperlipidemia, unspecified (principal)
CPT/HCPCS: 36415; 80061

== ENCOUNTER → 2023-08-21 06:40 | Outpatient (CLI) | payer MEDICARE, OTHER, SELFPAY ==
--- NOTE | 2023-08-21 | DI.MRI.S_ITS ---
PROCEDURE: MR LUMBAR SPINE WO CON INDICATIONS: Other spondylosis with radiculopathy, lumbosacral region TECHNIQUE: Noncontrast sagittal T1 spin echo and T2 fast echo, sagittal STIR, and T2 fast spin echo through the lumbar spine. In cases with scoliosis, additional coronal T2 fast spin echo may be performed. COMPARISON: [facility], MR, MR LUMBAR SPINE WO CON, 12/29/2021, 7:22. FINDINGS: Image quality: Excellent. Alignment and Curvature: Again noted is dextrocurvature centered at L2-L3. Trace degenerative retrolisthesis of L1 on L2. Bone Marrow: Marrow is of normal overall signal. No acute vertebral body compression fractures. Spinal Cord: Conus medullaris terminates at the L1 level. Visualized cord demonstrates normal signal and size. Paraspinous Soft Tissues: No paravertebral masses. T12-L1: Unchanged focal moderate right paracentral disc protrusion impinging on right-sided nerve root structures. No significant foraminal narrowing. L1-L2: Unchanged. Severe chronic disc height loss. Posterior disc post osteophyte. Bilateral facet hypertrophy, left greater than right. Unchanged moderate canal stenosis. Moderate right foraminal narrowing is unchanged. Question progression of left foraminal narrowing, severe, with left foraminal L1 nerve root impingement. L2-L3: Unchanged findings. Severe disc height loss. Posterior disc post osteophyte. Facet hypertrophy. Moderate canal stenosis. Unchanged moderate to severe left foraminal narrowing. L3-L4: No significant change. Severe chronic disc height loss. Posterior disc post osteophyte. Prominent facet and ligament hypertrophy. Central canal stenosis is severe, as before. Unchanged moderate right foraminal narrowing and severe left foraminal narrowing with left foraminal L3 nerve root impingement. L4-L5: Stable findings. Diffuse disc bulge. Bilateral facet hypertrophy, right greater than left. There is severe narrowing of the right-sided canal and moderate narrowing of the central canal. Severe right foraminal narrowing with right foraminal L4 nerve root impingement, as before. [id number] left foraminal narrowing. L5-S1: Disc bulge. Facet and ligament hypertrophy. No canal stenosis. There is moderate to severe bilateral foraminal narrowing with a degree of bilateral foraminal L5 nerve root impingement. IMPRESSION: 1. Findings are relatively stable. There is underlying dextrocurvature and the extensive multilevel facet arthropathy. 2. Unchanged moderate right paracentral disc protrusion at T12-L1 resulting in impingement on right-sided nerve root structures. 3. Canal stenosis is unchanged, moderate at L1-L2 and L2-L3, and severe at L3-L4. At L4-L5, there is severe narrowing of the right side of the canal and moderate narrowing of the left side of the canal. 4. Significant multilevel foraminal narrowing as described above. Findings include severe left foraminal narrowing at L1-L2, moderate to severe left foraminal narrowing at L2-L3, severe left foraminal narrowing at L3-L4, severe right foraminal narrowing at L4-L5, and moderate to severe bilateral foraminal narrowing at L5-S1. Dictated by: Davis Coats M.D. on 08/21/2023 at 18:33 Approved by: Davis Coats M.D. on 08/21/2023 at 18:43
[2023-08-21 09:23] LABS: Add Manual Diff / Slide Review NO; Basophils Absolute Auto 100 /uL (0-100); Basophils Percent Auto 1.1 % (0-2); Eosinophils Absolute Auto 200 /uL (0-450); Eosinophils Percent Auto 3.1 % (2-4); Hematocrit 42.3 % (41-53); Hemoglobin 14.2 g/dL (13.5-17.5); Lymphocytes Absolute Auto 1700 /uL (1100-4500); Lymphocytes Percent Auto 23.4 % (25-40); Mean Corpuscular HGB Conc 33.5 % (30-36); Mean Corpuscular Hemoglobin 31.2 PG (26-34); Mean Corpuscular Volume 93.2 fL (80-100); Monocytes Absolute Auto 800 /uL (0-900); Monocytes Percent Auto 10.5 % (3-14); Neutrophils Absolute Auto 4600 /uL (1500-7000); Neutrophils Percent Auto 61.9 % (50-75); Platelet Count 183 X10^3/uL (150-400); Red Blood Cell Count 4.53 X10^6/uL (4.5-5.9); Red Cell Distribution Width 13.7 % (11.6-14.8); White Blood Cell Count 7.4 X10^3/uL (4.5-11.0)
[2023-08-21 10:17] LABS: Alanine Aminotransferase 23 IU/L (<50); Albumin 4.2 g/dL (3.5-5.0); Albumin Globulin Ratio 1.4 (1.0-2.8); Alkaline Phosphatase 72 U/L (38-126); Aspartate Aminotransferase 29 IU/L (17-59); BUN Creatinine Ratio 31.1 (6-22); Bilirubin Total 0.7 mg/dL (0.2-1.3); Blood Urea Nitrogen 32 mg/dL (9-20); Calcium 9.3 mg/dL (8.4-10.2); Carbon Dioxide 26 mmol/L (22-32); Chloride 104 mmol/L (98-107); Cholesterol 189 mg/dL (140-199); Estimated Glomerular Filt Rate > 60 mL/min (>60); Globulin 2.9 g/dL (1.7-4.1); Glucose 82 mg/dL (80-110); HDL Cholesterol 47 mg/dL (40-60); HEMOLYSIS < 15 (0-50); LDL Cholesterol Calculated 130 mg/dL (<100); Potassium 4.8 mmol/L (3.4-5.1); Sodium 138 mmol/L (137-145); Total Protein 7.1 g/dL (6.3-8.2); Triglycerides 61 mg/dL (35-150)
== END ==
PROVIDERS: PCP Pediatrics; Referring Provider Anesthesiology Pain Medicine; Visit Provider Anesthesiology Pain Medicine
DX: Z13.228 Encounter for screening for other metabolic disorders (principal); Z79.891 Long term (current) use of opiate analgesic; M47.27 Other spondylosis with radiculopathy, lumbosacral region; Z13.220 Encounter for screening for lipoid disorders; G47.62 Sleep related leg cramps; M47.816 Spondylosis without myelopathy or radiculopathy, lumbar region; M51.25 Other intervertebral disc displacement, thoracolumbar region; M48.061 Spinal stenosis, lumbar region without neurogenic claudication; M48.07 Spinal stenosis, lumbosacral region; E78.2 Mixed hyperlipidemia
CPT/HCPCS: 36415; 72148; 80053; 80061; 85025

== ENCOUNTER → 2023-09-04 09:24 | Outpatient (CLI) | payer MEDICARE, OTHER, SELFPAY ==
[2023-09-04 14:12] LABS: Microalbumin Urine Random 3.2 mg/dL (0-1.6)
[2023-09-04 14:36] LABS: Creatinine Urine Random 94.4 mg/dL; Microalbumi Creatinin Ratio Ur 33.8 ug/mg CR (<30)
== END ==
PROVIDERS: PCP Family Medicine; Referring Provider Family Medicine; Visit Provider Family Medicine
DX: Z00.00 Encounter for general adult medical examination without abnormal findings (principal)
CPT/HCPCS: 82043; 82570

== ENCOUNTER → 2023-10-28 07:14 | Outpatient (CLI) | payer MEDICARE, OTHER, SELFPAY ==
--- NOTE | 2023-10-28 08:04 | DI.MRI.S_ITS ---
PROCEDURE: MR CERVICAL SPINE WO CON INDICATIONS: Cervicalgia TECHNIQUE: Noncontrast sagittal T1 spin echo and T2 fast spin echo, sagittal STIR, foraminal oblique sagittal T2 fast spin echo, and axial gradient echo or T2 fast spin echo through the cervical spine. COMPARISON: [facility], MR, MR CERVICAL SPINE WO CON, 10/20/2021, 7:21. FINDINGS: Image quality: Excellent. Alignment and Curvature: There is normal bony alignment. Bone Marrow: Marrow demonstrates normal overall signal. Spinal Cord: Visualized spinal cord has normal size and signal. No cerebellar tonsillar herniation. Paraspinous Soft Tissues: No paravertebral masses. Prevertebral soft tissues are normal in thickness. C2-C3: Normal appearance. C3-C4: No significant change. Severe chronic disc height loss. Diffuse posterior disc post osteophyte. Prominent bilateral facet hypertrophy. Flattening of the ventral cord. AP diameter of the central canal is 8.8 mm. Severe bilateral foraminal narrowing with bilateral foraminal L4 nerve root impingement. C4-C5: No significant change. Severe chronic disc height loss. Diffuse posterior disc plus osteophyte. Significant indentation and narrowing on the ventral cord. Large right uncovertebral joint osteophyte significantly indents on the cord and narrows the lateral recess. Severe canal stenosis. Prominent bilateral facet arthropathy. AP diameter of the central canal is 6.7 mm. Severe bilateral foraminal narrowing with bilateral foraminal C5 nerve root impingement. C5-C6: Definite interval progression. Severe chronic disc height loss. Large diffuse posterior disc post osteophyte. Severe or high-grade canal stenosis. AP diameter of the central canal is 4.9 mm. Bilateral uncovertebral joint hypertrophy. Bilateral facet hypertrophy. Severe bilateral foraminal narrowing with bilateral foraminal C6 nerve root impingement. C6-C7: Chronic disc height loss. Diffuse posterior disc post osteophyte. AP diameter of the central canal is 7.0 mm. Bilateral uncovertebral joint hypertrophy and facet hypertrophy. Moderate to severe bilateral foraminal narrowing with a degree of bilateral foraminal C7 nerve root impingement. C7-T1: Stable findings. Chronic disc height loss. Large right paracentral osteophyte indents on the ventral cord. AP diameter of the central canal is 7.0 mm. Bilateral facet hypertrophy and uncovertebral joint hypertrophy. Severe bilateral foraminal narrowing with bilateral foraminal C8 nerve root impingement. IMPRESSION: 1. Extensive diffuse cervical spondylosis is present. 2. There has been progression of findings at C5-C6. 3. Canal stenosis is moderate at C3-C4, severe at C4-C5, severe/high-grade at C5-C6, and severe at C6-C7 and C7-T1. 4. Significant multilevel foraminal narrowing with bilateral foraminal nerve root impingement at all levels from C3-C4 through C7-T1, as described above. Dictated by: Davis Coats M.D. on 10/29/2023 at 8:10 Approved by: Davis Coats M.D. on 10/29/2023 at 8:26
== END ==
PROVIDERS: PCP Family Medicine; Visit Provider Physician Assistant
DX: M47.812 Spondylosis without myelopathy or radiculopathy, cervical region (principal); M48.02 Spinal stenosis, cervical region; M54.2 Cervicalgia
CPT/HCPCS: 72141

== ENCOUNTER → 2024-06-23 10:19 | Outpatient (CLI) | payer MEDICARE, OTHER, SELFPAY ==
--- NOTE | 2024-06-23 10:24 | DI.ECHO.S_ITS ---
[facility]---------+ [facility] : : [address] : [place] : : [id number] : : Phone: [phone] Echocardiogram Report + + :Name: ADELAIDA DESHPANDE Study Date: 06/23/2024 Height: 71 in : :Hospital ReadingLocation: Weight: 232 lb : : Gender: Male BSA: 2.2 m2 : :: 1945 Age: 78 yrs BP: 182/119 mmHg: :Reason For Study: ASCENDING AORTA ENLARGEMENT : :Ordering Physician: FRANSISCO, : :LADAN Performed By: Mane Maya : :Referring: LADAN FORBES : + + Interpretation Summary 1) Normal left ventricular size and thcikness with mildly reduced systolic function (EF 45-50%). 2) Basal inferior wall and basal inferolateral wall are severely hypokinetic to akinetic. The mid to distal inferior wall is mildly hypokinetic. No significant change from the prior study when compared visually. 3) Normal right ventricular size with mildly reduced function. 4) There is mild aortic regurgitation. 5) The aortic root is mildly dilated at 4.3cm. The ascending aorta is mildly enlarged at 4.4cm. 6) Hypertension present during the study (BP 182/119mmHg). 7) Compared to the Echo done 05/09/2023, ascending aorta enlargement has increased from 4.2cm to 4.4cm on this study. Procedure: A two-dimensional transthoracic echocardiogram with color flow and Doppler was performed. The study quality was technically adequate. Comparison is made with the echocardiogram of 05/09/2023. The patient was in atrial fibrillation with heart rates between 59-75 bpm during the exam. Left Ventricle: The left ventricle is normal in size. Left ventricular wall thickness is normal. Proximal septal thickening is noted. There is no ventricular septal defect visualized. The ejection fraction is estimated to be 45-50%. Basal inferior wall and basal inferolateral wall are severely hypokinetic to akinetic. The mid to distal inferior wall is mildly hypokinetic. Diastolic parameters suggest a relaxation abnormality of the left ventricle, consistent with probable normal filling pressures. Right Ventricle: The right ventricle is normal size. Right ventricular systolic function is mildly reduced. Atria: The left atrial size is normal. Right atrial size is normal. There is no Doppler evidence for an atrial septal defect. Mitral Valve: The mitral valve is normal in structure and function. There is trace mitral regurgitation. Aortic Valve: The aortic valve is trileaflet. The aortic valve opens well. The aortic valve is mildly calcified. There is no aortic valve stenosis. There is mild aortic regurgitation. Tricuspid Valve: The tricuspid valve is normal in structure and function. There is trace tricuspid regurgitation. Pulmonary artery pressures cannot be estimated because of the lack of a measurable TR jet velocity. Pulmonic Valve: The pulmonic valve is normal in structure and function. There is trace pulmonic regurgitation. Great Vessels: The aortic root is mildly dilated. The ascending aorta is mild-moderately enlarged. The pulmonary artery is normal size. The inferior vena cava was not visualized. Pericardium/ Pleura There is no pericardial effusion. There is no pleural effusion. MMode/2D Measurements & Calculations LVIDd: 5.5 cm LVOT diam: 2.3 cm LVIDs: 4.8 cm Ao root diam: 4.3 cm FS: 13.6 % asc Aorta Diam: 4.4 cm EPSS: 1.7 cm Ao Arch Diam (Prox Trans): 2.5 cm IVSd: 1.3 cm LVPWd: 0.98 cm LV marroquin. diameter/BSA (cm/m^2): 2.5 LV sys. diameter/BSA (cm/m^2): 2.1 LA A2 area: 19.2 cm2 RA long axis: 5.9 cm LA A4 area: 18.0 cm2 RA area: 18.1 cm2 LA length (vol): 6.5 cm RA vol: 47.3 ml LA vol: 45.5 ml RA : 21.1 ml/m2 LA vol index: 20.2 ml/m2 RVD1 (basal): 2.9 cm RVD2 (mid): 2.8 cm TAPSE: 1.3 cm Doppler Measurements & Calculations Ao V2 max: 116.4 cm/sec LVOT Max Rubens: 81.3 cm/sec Ao V2 mean: 84.5 cm/sec LV V1 max P.6 mmHg Ao max P.5 mmHg LV V1 VTI: 18.2 cm Ao mean P.2 mmHg HERBER(I,D): 3.3 cm2 Ao V2 VTI: 22.5 cm HERBER(V,D): 2.8 cm2 sev ratio: 0.81 HERBER indexed to BSA (cm^2/m^2): 1.5 MV E max rubens: 20.1 cm/sec TR max rubens: 202.2 cm/sec MV A max rubens: 94.6 cm/sec TR max P.4 mmHg MV E/A: 0.21 PA V2 max: 67.0 cm/sec Med Peak E' Rubens: 2.6 cm/sec PA V2 mean: 47.7 cm/sec E/E' med: 7.6 PA mean P.0 mmHg Lat Peak E' Rubens: 3.6 cm/sec PA pr(Accel): 41.9 mmHg E/E' lat: 5.6 E/e' average: 6.6 MV dec time: 0.15 sec SV(LVOT): 73.3 ml Reading Physician:02:08 PM
== END ==
LOC: ECHO 10:23
PROVIDERS: PCP Family Medicine; Referring Provider Internal Medicine Cardiovascular Disease; Visit Provider Internal Medicine Cardiovascular Disease
DX: I77.810 Thoracic aortic ectasia (principal); I35.1 Nonrheumatic aortic (valve) insufficiency; I77.89 Other specified disorders of arteries and arterioles
CPT/HCPCS: 93306

== ENCOUNTER → 2024-07-11 06:58 | Outpatient (CLI) | payer MEDICARE, OTHER, SELFPAY ==
--- NOTE | 2024-07-11 06:59 | DI.MRI.S_ITS ---
PROCEDURE: MR BRAIN (IAC) WWO CON INDICATIONS: BENIGN AKIRA CRANIAL NERVES TECHNIQUE: Noncontrast sagittal T1 spin echo, axial FLAIR, axial gradient echo, axial diffusion and ADC through the brain. Axial thin-slice 3D CISS, coronal TruFISP, axial T1 spin echo with fat saturation through the internal auditory canals. After the administration of contrast, thin slice axial and coronal T1 spin echo with fat saturation through the internal auditory canals, and axial and coronal and sagittal T1 spin echo with fat saturation through the brain. COMPARISON: [facility], MR, BRAIN (IAC) W&WO CONTRAST, 09/07/2017, 7:09. [facility], MR, MR BRAIN (IAC) WWO CON, 09/12/2019, 6:59. FINDINGS: Image quality: Diagnostic, with note made of motion artifact. Cerebellopontine angles: There is again seen a mass within the right internal auditory canal, measuring 14 mm transversely, with a maximum AP extent 6 mm and a maximum craniocaudal extent of 8 mm. In 2018, this measured 12 x 6 x 7 mm. No new masses are seen within the internal auditory canals or within the cerebellopontine angle cisterns. CSF spaces: Ventricles are normal in size and shape. No extra-axial fluid collections. Basal cisterns are patent. Brain: No intracranial bleeds or mass effects. Campbell-white matter interface is intact. No abnormal intracranial enhancement. Diffusion weighted images demonstrate no acute ischemic insults. Brainstem appears normal. Normal intravascular flow voids are present. Note is made of age-appropriate brain parenchymal volume loss and chronic small vessel ischemic changes. Skull and face: Calvarial marrow signal is normal. Orbits appear normal. Sinuses: Sinuses and mastoids are clear. 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 However, please correlate with known patient history. There is minimal increased in size compared to 2019. Dictated by: Sal Zaldivar M.D. on 07/11/2024 at 16:41 Approved by: Sal Zaldivar M.D. on 07/11/2024 at 16:45
== END ==
LOC: MRI 06:59
PROVIDERS: PCP Family Medicine; Referring Provider Otolaryngology Otology & Neurotology; Visit Provider Otolaryngology Otology & Neurotology
DX: D33.3 Benign neoplasm of cranial nerves (principal); H90.3 Sensorineural hearing loss, bilateral
CPT/HCPCS: 70553; A9579

== ENCOUNTER 2024-07-17 15:07 | Emergency (ER) | payer MEDICARE, OTHER, SELFPAY ==
[2024-07-17] VITALS (11 sets, daily range): BP systolic 157–221; BP diastolic 96–132; PULSE 74–87; RESP 12–21; TEMP 36.6; O2SAT 94–98; BMI 32.2
--- NOTE | 2024-07-17 15:34 | EKG_ITS ---
[facility] [address] [place] [address] Test Date: 2024-07-17 Pat Name: Romel Edwards Department: [facility] Room: Gender: Male [employer] Coordinator: NOVA : 1945 Requested By: Order Number: [id number] Reading MD: Andres Edwards Measurements Intervals Tate Rate: 85 P: 8 MS: 200 QRS: -21 QRSD: 106 T: 5 QT: 380 QTc: 452 Interpretive Statements Sinus rhythm with occasional premature ventricular complexes Moderate voltage criteria for LVH, may be normal variant ( R in aVL , Issac product ) Septal infarct , age undetermined Inferior infarct , age undetermined Electronically Signed On 07-18-2024 9:05:24 PDT by Andres Edwards
[2024-07-17 16:43] LABS: Add Manual Diff / Slide Review NO; Basophils Absolute Auto 100 /uL (0-100); Basophils Percent Auto 0.7 % (0-2); Eosinophils Absolute Auto 0 /uL (0-450); Eosinophils Percent Auto 0.3 % (2-4); Hematocrit 43.9 % (41-53); Hemoglobin 14.7 g/dL (13.5-17.5); Lymphocytes Absolute Auto 1300 /uL (1100-4500); Lymphocytes Percent Auto 12.5 % (25-40); Mean Corpuscular HGB Conc 33.5 % (30-36); Mean Corpuscular Hemoglobin 31.7 PG (26-34); Mean Corpuscular Volume 94.5 fL (80-100); Monocytes Absolute Auto 800 /uL (0-900); Neutrophils Absolute Auto 8100 /uL (1500-7000); Neutrophils Percent Auto 78.5 % (50-75); Platelet Count 192 X10^3/uL (150-400); Red Blood Cell Count 4.64 X10^6/uL (4.5-5.9); Red Cell Distribution Width 13.1 % (11.6-14.8); White Blood Cell Count 10.3 X10^3/uL (4.5-11.0)
[2024-07-17 16:46] LABS: Alanine Aminotransferase 20 IU/L (<50); Albumin 4.2 g/dL (3.5-5.0); Albumin Globulin Ratio 1.4 (1.0-2.8); Alkaline Phosphatase 68 U/L (38-126); Aspartate Aminotransferase 35 IU/L (17-59); BUN Creatinine Ratio 26.9 (6-22); Bilirubin Total 0.6 mg/dL (0.2-1.3); Blood Urea Nitrogen 28 mg/dL (9-20); Carbon Dioxide 29 mmol/L (22-32); Chloride 104 mmol/L (98-107); Estimated Glomerular Filt Rate > 60 mL/min (>60); Globulin 2.9 g/dL (1.7-4.1); Glucose 101 mg/dL (80-110); HEMOLYSIS 17 (0-50); Potassium 4.6 mmol/L (3.4-5.1); Sodium 137 mmol/L (137-145); Total Protein 7.1 g/dL (6.3-8.2)
--- NOTE | 2024-07-17 18:26 | ED.SEIZURE ---
HPI - Seizure General Chief Complaint: Seizure Stated Complaint: had a seizure this morning Time Seen by Provider: 07/17/24 17:10 Source: patient Mode of arrival: Ambulatory Limitations: no limitations History of Present Illness HPI Narrative: 78-year-old male with history of prior seizure about 4 years ago, in context of metoprolol use and lack of sleep, had testing [facility], subsequently had been followed by Neurology Dr. Gonzalez at [facility], never started on antiseizure medications, had been doing well. Having ongoing chronic neck pain, occipital injections attempted at C4 level, that patient feels interferes with his sleep. Taking muscle relaxant medications. This morning had seizure shaking arms and legs witnessed by a proximally 9:00 a.m., lasting 1-1/2 minutes or so, confusion afterwards, incontinence of urine after, no incontinence of stool, then seemed recovered. He has history of acoustic neuroma, had follow up MRI without and with contrast imaging in the last few days, reportedly reassuring results. No injury or trauma or falls. No focal weakness to face arm or leg. He was recovered through the day today after the single seizure event. He had bruising to the tip of his right tongue, no other injuries or sequelae. He has not having recent diarrhea, vomiting, fevers, shortness of breath, chest discomfort. No visual disturbances, no focal weakness to face arm or leg, no focal numbness face arm or leg, no tingling or aura like sensations that he might have any seizure activity. Related Data Home Medications Medication Instructions Recorded Confirmed acetaminophen 650 mg 2 - 4 tab PO QDAY ##0 02/28/12 01/29/24 tablet,extended release naproxen sodium 220 mg tablet 1 tab PO PRN ##0 05/13/13 01/29/24 (Aleve) acetaminophen 300 mg-codeine 30 mg 1 tab PO PRN PRN ##0 01/15/17 01/29/24 tablet gabapentin 100 mg capsule 100 mg PO BID 10/30/22 01/29/24 ibuprofen 200 mg capsule 200 mg PO Q6H PRN 10/30/22 01/29/24 lidocaine 5 % topical ointment 1 applic topical BEDTIME PRN pain 03/13/23 01/29/24 methocarbamol 500 mg tablet 500 mg PO BID PRN 08/31/23 01/29/24 tizanidine 4 mg tablet See Rx Instructions PO BEDTIME PRN 01/29/24 01/29/24 Previous Rx's Medication Instructions Recorded sodium,potassium,mag sulfates 17.5 See Rx Instructions PO .COMPLEX 06/10/24 gram-3.13 gram-1.6 gram oral soln #354 mL (Suprep Bowel Prep Kit) Allergies Allergy/AdvReac Type Severity Reaction Status Date / Time losartan Allergy Severe seizures Verified 07/17/24 15:28 metoprolol Allergy Severe Hypotension, Verified 07/17/24 15:28 presyncope lisinopril AdvReac Mild Cough Verified 07/17/24 15:28 STATIN AdvReac Mild Uncoded 01/29/24 07:50 Review of Systems Review of Systems Narrative: See HPI Patient History Medical History (Updated 07/17/24 @ 20:01 by Marco Antonio Downing MD) Chronic headache Cervicalgia Occipital neuralgia of left side Spondylosis without myelopathy or radiculopathy, cervical region Stroke (2017) Foot pain (2015) Obesity (BMI 30.0-34.9) Spasms of the hands or feet Right acoustic neuroma (2003) History of recurrent ear infection Hyperlipidemia Hypertension Hemorrhoids Hearing loss Chicken pox (~1955) Measles (~1955) Mumps (~1955) Plantar warts (~1965) Chronic back pain Shoulder pain (2012) CAD (coronary artery disease) (2007) Paroxysmal atrial fibrillation Gastric outlet obstruction (1997) Pyloric stenosis (194) Acute embolic stroke (12/14/17) Acoustic neuroma (09/02/15) Acute coronary syndrome Seizure Surgical History Anesthesia Status post gastric surgery (1997) History of gastrointestinal surgery (194) History of ear surgery (2003) Status post coronary artery bypass graft (2007) Family History Sister Diabetes mellitus Father COPD (chronic obstructive pulmonary disease) Emphysema of lung Mother GI cancer Colon cancer Social History Smoking Status: Never smoker Smoking Status: Never smoker alcohol intake frequency: 0-2 drinks per day Substance Use Type: does not use Exam Narrative Exam Narrative: GENERAL: Well-developed patient, in mild distress. HEAD: Atraumatic. Normocephalic. EYES: Pupils equal round and reactive. Extraocular motions intact. No scleral icterus. No injection or drainage. ENT: Right anterior distal tongue tip appears contused, no laceration, no active bleeding. Nose without bleeding, purulent drainage. Throat without erythema, tonsillar hypertrophy or exudate. TMs and EACs clear after hearing aids removed for exam. Airway patent. NECK: Trachea midline. Non tender CARDIOVASCULAR: Regular rate and rhythm without murmurs, gallops, or rubs. RESPIRATORY: Clear to auscultation. Breath sounds equal bilaterally. No wheezes, rales, or rhonchi. GASTROINTESTINAL: Abdomen soft, non-tender, nondistended. EXTREMITIES: No edema or joint tenderness. BACK: Nontender without deformity or crepitance. No flank tenderness. NEURO: AOx3. Motor functions grossly nonfocal SKIN: No rash or erythema of visible areas Initial Vital Signs Initial Vital Signs: Vital Signs Temperature 97.8 F 07/17/24 15:21 Pulse Rate 74 07/17/24 15:21 Respiratory Rate 18 07/17/24 15:21 Blood Pressure 179/106 H 07/17/24 15:21 Pulse Oximetry 97 07/17/24 15:21 Oxygen Delivery Method Room Air 07/17/24 15:21 Course Orders Ordered: ED Orders 07/17/24 15:28 EKG-12 Lead Stat 07/17/24 16:15 Complete Blood Count AUTO DIFF Stat Comprehensive Metabolic Panel Stat Vital Signs Vital signs: Vital Signs - 8 hr 07/17/24 15:21 07/17/24 16:10 07/17/24 16:10 Temperature 97.8 F Pulse Rate 74 82 Respiratory Rate 18 Blood Pressure 179/106 H 221/104 H Pulse Oximetry 97 98 Oxygen Delivery Method Room Air 07/17/24 16:14 07/17/24 16:14 07/17/24 16:30 Temperature Pulse Rate 79 82 Respiratory Rate 12 20 Blood Pressure 192/132 H Pulse Oximetry 97 97 Oxygen Delivery Method Room Air 07/17/24 17:00 07/17/24 17:11 07/17/24 17:11 Temperature Pulse Rate 83 83 Respiratory Rate 17 16 Blood Pressure 157/96 H Pulse Oximetry 94 95 Oxygen Delivery Method Room Air 07/17/24 17:30 07/17/24 18:00 07/17/24 18:30 Temperature Pulse Rate 87 86 86 Respiratory Rate 16 21 20 Blood Pressure Pulse Oximetry 96 96 Oxygen Delivery Method 07/17/24 19:00 07/17/24 19:05 07/17/24 19:05 Temperature Pulse Rate 76 77 Respiratory Rate 18 21 Blood Pressure 157/100 H Pulse Oximetry 97 96 Oxygen Delivery Method MDM - Seizure Lab Data Attestation: I reviewed the patient's lab results. 07/17/24 16:15 07/17/24 16:15 Labs: Lab Results 07/17/24 Range/Units 16:15 WBC 10.3 (4.5-11.0) X10^3/uL RBC 4.64 (4.5-5.9) X10^6/uL Hgb 14.7 (13.5-17.5) g/dL Hct 43.9 (41-53) % MCV 94.5 (80-100) fL MCH 31.7 (26-34) PG MCHC 33.5 (30-36) % RDW 13.1 (11.6-14.8) % Plt Count 192 (150-400) X10^3/uL Neut % (Auto) 78.5 H (50-75) % Lymph % (Auto) 12.5 L (25-40) % [place] % (Auto) 8.0 (3-14) % Eos % (Auto) 0.3 L (2-4) % Baso % (Auto) 0.7 (0-2) % Neut # (Auto) 8100 H (7214-8842) /uL Lymph # (Auto) 1300 (5165-0712) /uL [place] # (Auto) 800 (0-900) /uL Eos # (Auto) 0 (0-450) /uL Baso # (Auto) 100 (0-100) /uL Sodium 137 (137-145) mmol/L Potassium 4.6 (3.4-5.1) mmol/L Chloride 104 (98-107) mmol/L Carbon Dioxide 29 (22-32) mmol/L BUN 28 H (9-20) mg/dL Creatinine 1.04 (0.66-1.25) mg/dL Estimated GFR > 60 (>60) mL/min BUN/Creatinine Ratio 26.9 H (6-22) Glucose 101 (80-110) mg/dL Calcium 9.0 (8.4-10.2) mg/dL Total Bilirubin 0.6 (0.2-1.3) mg/dL AST 35 (17-59) IU/L ALT 20 (<50) IU/L Alkaline Phosphatase 68 (38-126) U/L Total Protein 7.1 (6.3-8.2) g/dL Albumin 4.2 (3.5-5.0) g/dL Globulin 2.9 (1.7-4.1) g/dL Albumin/Globulin Ratio 1.4 (1.0-2.8) Point of Care Testing Glucose POC 81 ECG Data Attestation: I personally reviewed and interpreted this ECG as follows: Interpretation: Normal sinus rhythm with rate 85, no obvious ST segment elevation or depression changes. PVCs noted. IL 200, QRS 106, QTC 452. MDM Narrative Medical decision making narrative: 78-year-old male with tonic-clonic witnessed seizure this morning, right tip tongue contusion, no other injuries, some associated continence, prior history of seizures for years ago with workup [facility], followed by [facility] neurologist Dr. Gonzalez, not taking chronic antiseizure medications ever. No recent illness symptoms, chronic pain, decreased sleep due to chronic neck pain, prior occipital injections. Recent MRI evaluation within the week for acoustic neuroma follow up, reportedly reassuring. Screening labs pending. No seizure activity, no aura like he might have a seizure. Screening labs unremarkable. Medical records review, prior diagnostic imaging. Copy of recent brain MRI 07/11/2024, done without and with contrast, provided to patient. 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 However, please correlate with known patient history. There is minimal increased size compared to 2019. See radiology report. We discussed noncontrast head CT scanning now, declined. He would like to go home, we will hold off on starting Keppra or other antiseizure medications, advised follow up with his established [place] neurologist Dr. Gonzalez, and with his chronic neck/head pain control providers. Home with . Return precautions discussed. Discharge Plan Departure Patient Disposition: Home Clinical Impression: Seizure, History of acoustic neuroma, History of seizure Activity Restrictions/Additional Instructions: History of remote seizure 4 years ago, with previous workup, no chronic antiseizure medications have been tried. History of acoustic neuroma, recent MRI imaging within this last week, reportedly no concerns relayed. This morning single tonic-clonic shaking arms and legs seizure activity approach 1-1/2 minutes duration witnessed by , with some post seizure confusion, then recovery, bruising to the tip of the right tongue, incontinence of urine, no other sequelae. He had been well through the day. Here for further evaluation. Labs sent and were unremarkable. We did discuss CT head noncontrast emergent imaging tonight, declined for now. Reassuring examination. We discussed antiseizure medications, however since you had a single seizure we will hold off on starting anti seizure chronic medication at this time, though consider if you have recurrent breakthrough seizure activity. Follow up advised with your established neurologist Dr. Gonzalez in [place], to further evaluate. Follow up with your chronic neck pain headache pain providers, as there may be some other occipital nerve blocks or other therapies they might be able to provide, that perhaps can improve your sleep pattern/quantity. Consider taking Tylenol as needed for discomfort. Follow up with your neurologist advised, call office tomorrow to arrange close follow up. Return to this/nearest emergency department for any change worsening symptoms or any concerns prior Prescriptions: No Action tizanidine 4 mg tablet See Rx Instructions PO BEDTIME PRN Hold Instructions: Patient not actively taking Rx Instructions: 1/2-1 tab orally bedtime PRN; acetaminophen 650 MG tablet extended release 2 - 4 tab PO QDAY Qty: 0 naproxen sodium [Aleve] 220 MG tablet 1 tab PO PRN Qty: 0 acetaminophen-codeine 30 MG/300 MG tablet 1 tab PO PRN PRNQty: 0 sodium,potassium,mag sulfates [Suprep Bowel Prep Kit] 17.5-3.13-1.6 gram recon soln See Rx Instructions PO .COMPLEX Qty: 354 0RF Rx Instructions: take as directed by Physician gabapentin 100 mg capsule 100 mg PO BID ibuprofen 200 mg capsule 200 mg PO Q6H PRN methocarbamol 500 mg tablet 500 mg PO BID PRN lidocaine 5 % ointment 1 applic topical BEDTIME PRN (Reason: pain) Patient Comments: APPLY A SINGLE APPLICATION NOT EXCEEDING 5 GRAMS OF OINTMENT FOUR TIMES DAILY Referrals: Mane Christine MD [Primary Care Provider] - Stand Alone Forms: Patient Portal/API
--- NOTE | 2024-07-17 19:28 | PC.NURSE ---
Pt ambulatory to restroom without difficulty or assistance.
--- NOTE | 2024-07-17 19:47 | PC.NURSE ---
Dr. Downing in with patient at this time.
== END 2024-07-17 20:08 | disposition home or self-care (01) ==
PROVIDERS: Emergency Medicine; Emergency Provider Emergency Medicine; PCP Family Medicine
DX: G40.909 Epilepsy, unspecified, not intractable, without status epilepticus (principal); R07.9 Chest pain, unspecified; Z86.018 Personal history of other benign neoplasm
CPT/HCPCS: 80053; 82962; 85025; 93005; 99283; 99284

== ENCOUNTER → 2024-08-05 06:51 | Outpatient (CLI) | payer MEDICARE, OTHER, SELFPAY ==
[2024-08-05 07:58] LABS: Add Manual Diff / Slide Review NO; Basophils Absolute Auto 100 /uL (0-100); Basophils Percent Auto 1.7 % (0-2); Eosinophils Absolute Auto 100 /uL (0-450); Hematocrit 43.4 % (41-53); Hemoglobin 14.8 g/dL (13.5-17.5); Lymphocytes Absolute Auto 1900 /uL (1100-4500); Lymphocytes Percent Auto 27.8 % (25-40); Mean Corpuscular HGB Conc 34.1 % (30-36); Mean Corpuscular Hemoglobin 31.7 PG (26-34); Mean Corpuscular Volume 92.8 fL (80-100); Monocytes Absolute Auto 700 /uL (0-900); Monocytes Percent Auto 10.5 % (3-14); Neutrophils Absolute Auto 3900 /uL (1500-7000); Platelet Count 217 X10^3/uL (150-400); Red Blood Cell Count 4.67 X10^6/uL (4.5-5.9); Red Cell Distribution Width 13.3 % (11.6-14.8); White Blood Cell Count 6.8 X10^3/uL (4.5-11.0)
[2024-08-05 08:10] LABS: Alanine Aminotransferase 19 IU/L (<50); Albumin 3.9 g/dL (3.5-5.0); Albumin Globulin Ratio 1.6 (1.0-2.8); Alkaline Phosphatase 74 U/L (38-126); Aspartate Aminotransferase 23 IU/L (17-59); BUN Creatinine Ratio 23.5 (6-22); Bilirubin Total 0.5 mg/dL (0.2-1.3); Blood Urea Nitrogen 27 mg/dL (9-20); Carbon Dioxide 27 mmol/L (22-32); Chloride 108 mmol/L (98-107); Cholesterol 215 mg/dL (140-199); Estimated Glomerular Filt Rate > 60 mL/min (>60); Globulin 2.5 g/dL (1.7-4.1); Glucose 87 mg/dL (80-110); HDL Cholesterol 47 mg/dL (40-60); HEMOLYSIS < 15 (0-50); LDL Cholesterol Calculated 150 mg/dL (<100); Sodium 140 mmol/L (137-145); Total Protein 6.4 g/dL (6.3-8.2); Triglycerides 91 mg/dL (35-150)
[2024-08-05 08:53] LABS: Creatinine Urine Random 217.26 mg/dL
[2024-08-05 08:57] LABS: Microalbumin Urine Random 5.6 mg/dL (0-1.6)
== END ==
PROVIDERS: PCP Family Medicine; Referring Provider Family Medicine; Visit Provider Family Medicine
DX: I25.10 Atherosclerotic heart disease of native coronary artery without angina pectoris (principal); I48.0 Paroxysmal atrial fibrillation; I10 Essential (primary) hypertension; R80.9 Proteinuria, unspecified; E78.5 Hyperlipidemia, unspecified; Z86.69 Personal history of other diseases of the nervous system and sense organs; I15.8 Other secondary hypertension; R14.0 Abdominal distension (gaseous); M54.81 Occipital neuralgia
CPT/HCPCS: 36415; 80053; 80061; 82043; 82570; 85025

== ENCOUNTER → 2025-01-13 08:54 | Outpatient (CLI) | payer MEDICARE, OTHER, SELFPAY ==
[2025-01-13 09:49] LABS: Hematocrit 43.4 % (41-53); Hemoglobin 14.6 g/dL (13.5-17.5); Mean Corpuscular HGB Conc 33.6 % (30-36); Mean Corpuscular Hemoglobin 30.8 PG (26-34); Mean Corpuscular Volume 91.7 fL (80-100); Platelet Count 201 X10^3/uL (150-400); Red Blood Cell Count 4.73 X10^6/uL (4.5-5.9); Red Cell Distribution Width 13.9 % (11.6-14.8)
[2025-01-13 10:15] LABS: BUN Creatinine Ratio 22.2 (6-22); Blood Urea Nitrogen 26 mg/dL (9-20); Calcium 8.9 mg/dL (8.4-10.2); Carbon Dioxide 27 mmol/L (22-32); Chloride 107 mmol/L (98-107); Cholesterol 214 mg/dL (140-199); Estimated Glomerular Filt Rate > 60 mL/min (>60); Glucose 92 mg/dL (80-110); HDL Cholesterol 42 mg/dL (40-60); HEMOLYSIS < 15 (0-50); LDL Cholesterol Calculated 155 mg/dL (<100); Potassium 4.4 mmol/L (3.4-5.1); Sodium 140 mmol/L (137-145); Triglycerides 83 mg/dL (35-150)
== END ==
PROVIDERS: PCP Family Medicine; Referring Provider Internal Medicine Cardiovascular Disease; Visit Provider Internal Medicine Cardiovascular Disease
DX: I25.10 Atherosclerotic heart disease of native coronary artery without angina pectoris (principal)
CPT/HCPCS: 36415; 80048; 80061; 85027

== ENCOUNTER → 2025-01-14 10:04 | Outpatient (CLI) | payer MEDICARE, OTHER, SELFPAY ==
--- NOTE | 2025-01-14 10:07 | DI.ECHO.S_ITS ---
[facility] +---------+ Hospital : : [address] : : [place] : : [id number] : : Phone: [phone] Echocardiogram Report + + :Name: ADELAIDA DESHPANDE Study Date: 01/14/2025 Height: 71 in : :Hospital ReadingLocation: Weight: 234 lb : : Gender: Male BSA: 2.3 m2 : :: 1945 Age: 79 yrs BP: 120/85 mmHg: :Reason For Study: ASCENDING AORTA DILATION : :Ordering Physician: FRANSISCO, : :LADAN Performed By: Mane Maya : :Referring: LADAN FORBES : + + Interpretation Summary 1) Normal left ventricular size with mildly reduced systolic function (EF 45- 50%). 2) Basal inferior wall and basal inferolateral wall are severely hypokinetic to akinetic. The mid to distal inferior wall is mildly hypokinetic. No significant change from the prior study when compared visually. 3) Normal right ventricular size with mildly reduced function. 4) There is mild aortic regurgitation. 5) The aortic root is mildly dilated at 4.4cm. The ascending aorta is mildly enlarged at 4.4cm. 6) Compared to the Echo done 06/23/2024, no significant change. Procedure: A two-dimensional transthoracic echocardiogram with color flow and Doppler was performed. The study quality was technically good. Comparison is made with the echocardiogram of 06/23/2024. The heart rate ranged between 63-81 bpm during the study. Left Ventricle: The left ventricle is normal in size. Left ventricular wall thickness is mildly increased. Proximal septal thickening is noted. There is no ventricular septal defect visualized. The ejection fraction is estimated to be 45-50%. Basal inferior wall and basal inferolateral wall are hypokinetic to akinetic. The mid to distal inferior wall is mildly hypokinetic. Diastolic parameters suggest a relaxation abnormality of the left ventricle, consistent with probable normal filling pressures. Right Ventricle: The right ventricle is normal size. Right ventricular systolic function is mildly reduced. Atria: The left atrial size is normal. Right atrial size is normal. There is no Doppler evidence for an interatrial shunt. Mitral Valve: The mitral valve leaflets appear normal. There is no evidence of stenosis, fluttering, or prolapse. There is no mitral regurgitation noted. Aortic Valve: The aortic valve is trileaflet. The aortic valve opens well. The aortic valve is slightly calcified. There is no aortic valve stenosis. There is mild aortic regurgitation. Tricuspid Valve: The tricuspid valve leaflets are thin and pliable. There is a trace or physiologic amount of tricuspid regurgitation. Pulmonic Valve: The pulmonic valve is not well seen, but is grossly normal. There is trace pulmonic regurgitation. Great Vessels: The aortic root is mildly dilated. The ascending aorta is mildly enlarged. The pulmonary artery is normal size. The inferior vena cava was not visualized. Pericardium/ Pleura There is no pericardial effusion. MMode/2D Measurements & Calculations LVIDd: 5.0 cm LVOT diam: 2.3 cm LVIDs: 3.7 cm Ao root diam: 4.4 cm FS: 24.5 % asc Aorta Diam: 4.4 cm EPSS: 1.2 cm Ao Arch Diam (Prox Trans): 2.4 cm IVSd: 1.3 cm LVPWd: 1.3 cm LV marroquin. diameter/BSA (cm/m^2): 2.2 LV sys. diameter/BSA (cm/m^2): 1.7 LA A2 area: 24.4 cm2 RA long axis: 4.5 cm LA A4 area: 23.4 cm2 RA area: 11.2 cm2 LA length (vol): 6.8 cm RA vol: 23.6 ml LA vol: 71.0 ml RA : 10.5 ml/m2 LA vol index: 31.5 ml/m2 RVD1 (basal): 3.3 cm RVD2 (mid): 2.8 cm TAPSE: 1.5 cm Doppler Measurements & Calculations Ao V2 max: 109.5 cm/sec LVOT Max Rubens: 75.2 cm/sec Ao V2 mean: 82.1 cm/sec LV V1 max P.3 mmHg Ao max P.8 mmHg LV V1 VTI: 15.5 cm Ao mean P.9 mmHg HERBER(I,D): 3.1 cm2 Ao V2 VTI: 21.6 cm HERBER(V,D): 3.0 cm2 sev ratio: 0.72 HERBER indexed to BSA (cm^2/m^2): 1.4 MV E max rubens: 39.3 cm/sec PA V2 max: 85.2 cm/sec MV A max rubens: 100.7 cm/sec PA V2 mean: 61.9 cm/sec MV E/A: 0.39 PA mean P.7 mmHg Med Peak E' Rubens: 3.4 cm/sec PA pr(Accel): 44.7 mmHg E/E' med: 11.6 Lat Peak E' Rubens: 7.5 cm/sec E/E' lat: 5.3 E/e' average: 8.4 MV dec time: 0.45 sec SV(LVOT): 66.8 ml Reading Physician:04:36 PM
== END ==
PROVIDERS: PCP Family Medicine; Referring Provider Internal Medicine Cardiovascular Disease; Visit Provider Internal Medicine Cardiovascular Disease
DX: I35.1 Nonrheumatic aortic (valve) insufficiency (principal); I77.810 Thoracic aortic ectasia; I77.89 Other specified disorders of arteries and arterioles
CPT/HCPCS: 93306

== ENCOUNTER → 2025-03-11 13:55 | Outpatient (CLI) | payer MEDICARE, OTHER, SELFPAY ==
--- NOTE | 2025-03-11 13:59 | DI.RAD.S_ITS ---
PROCEDURE: XR ABDOMEN MIN 2V INDICATIONS: assess for constipation TECHNIQUE: 2 views of the abdomen were acquired. COMPARISON: None. FINDINGS: Stool gas pattern: Moderate stool is present within the right colon. Stomach small large bowel are grossly normal caliber no evidence of obstruction.. No free intraperitoneal or extraperitoneal air. No gross evidence of ascites Soft tissues: No abnormal calcifications. No soft tissue masses. Organs: No gross evidence for organomegaly. IMPRESSION: Moderate colonic stool. No acute disease Dictated by: Kirby Morris M.D. on 03/12/2025 at 11:59 Approved by: Kirby Morris M.D. on 03/12/2025 at 11:59
== END ==
PROVIDERS: PCP Family Medicine; Referring Provider Family Medicine; Visit Provider Family Medicine
DX: K59.00 Constipation, unspecified (principal)
CPT/HCPCS: 74019

== ENCOUNTER 2025-04-11 11:26 | Inpatient (IN) | payer MEDICARE, OTHER, SELFPAY ==
[2025-04-11] VITALS (31 sets, daily range): BP systolic 98–159; BP diastolic 60–102; PULSE 86–139; RESP 19–39; TEMP 36.9–37.2; O2SAT 92–97; BMI 35.2; BMI 34.6
--- NOTE | 2025-04-11 11:28 | EKG_ITS ---
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
--- NOTE | 2025-04-11 11:28 | DI.RAD.S_ITS ---
PROCEDURE: XR CHEST 1V INDICATIONS: Chest Pain TECHNIQUE: One view of the chest was acquired. COMPARISON: None. FINDINGS: Surgical changes and devices: Median sternotomy wires are present. Several of these are fractured.. Lungs and pleura: Lungs are hypoinflated but clear. No pleural effusions or pneumothorax. Mediastinum: Mediastinal contours appear grossly normal given rotation. Heart size is normal. Bones and chest wall: No suspicious bony lesions. Overlying soft tissues appear unremarkable. IMPRESSION: No acute cardiopulmonary abnormality is seen. Dictated by: Harriet Amin M.D. on 04/11/2025 at 11:07 Approved by: Harriet Amin M.D. on 04/11/2025 at 11:08
--- NOTE | 2025-04-11 11:30 | EKG_ITS ---
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
--- NOTE | 2025-04-11 11:40 | ED.CHESTPAIN ---
HPI - Chest Pain General Chief Complaint: Chest Pain Stated Complaint: Poss heart attack; headache, pain radiating chest Time Seen by Provider: 04/11/25 11:37 History of Present Illness HPI narrative: 79-year-old male with a history of coronary artery bypass graft surgery of 3 vessels back in 2007. He had a brief history of atrial fibrillation status post surgery and refused anticoagulation at that time. Currently just on a baby aspirin daily but did not take his baby aspirin today. Patient also has a history of an ascending aortic dilatation. An echocardiogram back in April of 2023 measured it at 4.2 cm. Yesterday according to the patient's partner, she was having a headache with some radiating pain down his chest. Currently according to the patient, he is asymptomatic. Related Data Home Medications ?Medication ?Instructions ?Recorded ?Confirmed ibuprofen 200 mg capsule 200 mg PO Q6H PRN 10/30/22 03/11/25 tizanidine 4 mg tablet See Rx Instructions PO BEDTIME PRN 01/29/24 03/11/25 acetaminophen 325 mg capsule 325 mg PO DAILY PRN 07/31/24 03/11/25 methocarbamol 500 mg tablet 500 mg PO BEDTIME PRN 03/06/25 03/11/25 Allergies Allergy/AdvReac Type Severity Reaction Status Date / Time losartan Allergy Severe seizures Verified 11/05/24 09:23 metoprolol Allergy Severe Hypotension, Verified 11/05/24 09:23 presyncope lisinopril AdvReac Mild Cough Verified 11/05/24 09:23 Ibftqyq-[id number]-UbU Reductase AdvReac Mild Verified 04/11/25 11:44 Inhibitor Review of Systems Review of Systems ROS Unobtainable: All systems reviewed & are unremarkable except as noted in HPI and below Patient History Medical History (Updated 04/11/25 @ 13:44 by Lazaro Rea MD) Chronic headache Cervicalgia Occipital neuralgia of left side Spondylosis without myelopathy or radiculopathy, cervical region Stroke (2018) Foot pain (2016) Obesity (BMI 30.0-34.9) Spasms of the hands or feet Right acoustic neuroma (2003) History of recurrent ear infection Hyperlipidemia Hypertension Hemorrhoids Hearing loss Chicken pox (~195) Measles (~1954) Mumps (~1954) Plantar warts (~1964) Chronic back pain Shoulder pain (2012) CAD (coronary artery disease) (2007) Paroxysmal atrial fibrillation Gastric outlet obstruction (1997) Pyloric stenosis (1948) Acute embolic stroke (12/14/17) Acoustic neuroma (09/02/15) Acute coronary syndrome Seizure Surgical History Anesthesia Status post gastric surgery (1997) History of gastrointestinal surgery (194) History of ear surgery (2003) Status post coronary artery bypass graft (2007) Family History Sister Diabetes mellitus Father COPD (chronic obstructive pulmonary disease) Emphysema of lung Mother GI cancer Colon cancer alcohol intake frequency: 0-2 drinks per day Exam Initial Vital Signs Initial Vital Signs: Vital Signs Pulse Rate 139 H 04/11/25 11:32 Respiratory Rate 34 H 04/11/25 11:32 Pulse Oximetry 95 04/11/25 11:32 Course Course Course Narrative: Patient's heart rate initially came down in the 110s after a loading dose of diltiazem. His heart rate started creeping back up the 120s and so a diltiazem drip was initiated. Patient's troponin came back extremely elevated as well. Patient will be admitted as an inpatient after discussion with the hospitalist. Orders Ordered: ED Orders 04/11/25 11:28 XR chest 1V Stat EKG-12 Lead Stat 04/11/25 11:33 Complete Blood Count AUTO DIFF Stat Comprehensive Metabolic Panel Stat Lipase Stat Magnesium Stat NT-proBNP (BNP-Adult 18+) Stat PTT Partial Thromboplastin Sai Stat Prothrombin Time INR Stat Troponin & CK Cardiac Panel Stat 04/11/25 11:40 EKG-12 Lead Stat 04/11/25 13:30 Trop I [Troponin I] Stat 04/11/25 15:00 Troponin I Stat Sodium Chloride (Normal Saline 0.9%) 1,000 mls @ 1,000 mls/hr IV BOLUS ONE Stop: 04/11/25 13:22 Last Admin: 04/11/25 12:28 Dose: 1,000 mls/hr Documented By: LILLI Diltiazem HCl 125 mg/ Sodium (Chloride) 125 mls @ 5 mls/hr IV TITRATE PUMA; Protocol Discontinued Medications Aspirin (Aspirin 81 Mg Chew Tab) 324 mg PO NOW ONE Stop: 04/11/25 11:29 Last Admin: 04/11/25 11:46 Dose: 324 mg Documented By: LILLI Diltiazem HCl (Diltiazem 25 Mg/5 Ml Sdv) 20 mg IV NOW ONE Stop: 04/11/25 11:38 Last Admin: 04/11/25 11:45 Dose: 20 mg Documented By: LILLI Reevaluation(s) Reevaluation #1: Upon re-evaluation patient's heart rate creeping up into 120s but he is asymptomatic at this point. Consultations Consultation #1: spoke with hospitalist dr. farris who accepted the patient for uncontrolled rate from atrial fibrillation with an RVR picture. Vital Signs Vital signs: Vital Signs - 8 hr 04/11/25 11:32 04/11/25 11:34 04/11/25 11:45 Pulse Rate 139 H 138 H Respiratory Rate 34 H 20 Blood Pressure 159/102 H 159/102 H Pulse Oximetry 95 96 Oxygen Delivery Method Room Air 04/11/25 11:45 04/11/25 11:45 04/11/25 11:52 Pulse Rate 138 H Respiratory Rate Blood Pressure 147/98 H 113/68 Pulse Oximetry 94 Oxygen Delivery Method 04/11/25 11:52 04/11/25 11:55 04/11/25 11:55 Pulse Rate 116 H 99 H Respiratory Rate 19 19 Blood Pressure 108/67 Pulse Oximetry 94 92 Oxygen Delivery Method 04/11/25 12:00 04/11/25 12:00 04/11/25 12:10 Pulse Rate 107 H Respiratory Rate Blood Pressure 104/66 103/74 Pulse Oximetry 94 Oxygen Delivery Method 04/11/25 12:10 04/11/25 12:20 04/11/25 12:20 Pulse Rate 103 H 111 H Respiratory Rate 23 31 H Blood Pressure 102/73 Pulse Oximetry 92 93 Oxygen Delivery Method MDM - Chest Pain Differential Diagnosis Differential diagnosis: Likely pneumothorax, stable angina, atypical chest pain and other (atrial fibrillation ) Lab Data 04/11/25 11:33 04/11/25 11:33 Labs: Lab Results 04/11/25 Range/Units 11:33 WBC 16.3 H (4.5-11.0) X10^3/uL RBC 4.65 (4.5-5.9) X10^6/uL Hgb 14.3 (13.5-17.5) g/dL Hct 42.3 (41-53) % MCV 91.0 (80-100) fL MCH 30.7 (26-34) PG MCHC 33.8 (30-36) % RDW 14.2 (11.6-14.8) % Plt Count 180 (150-400) X10^3/uL Neut % (Auto) 76.0 H (50-75) % Lymph % (Auto) 7.7 L (25-40) % Steele % (Auto) 15.9 H (3-14) % Eos % (Auto) 0.1 L (2-4) % Baso % (Auto) 0.3 (0-2) % Neut # (Auto) 79950 H (7258-6109) /uL Lymph # (Auto) 1300 (5015-1688) /uL Steele # (Auto) 2600 H (0-900) /uL Eos # (Auto) 0 (0-450) /uL Baso # (Auto) 100 (0-100) /uL RBC Morphology Normal morphology PT 16.1 H (9.4-12.5) SECONDS INR 1.4 H (0.9-1.3) APTT 32 (25.1-36.5) SECONDS Sodium 136 L (137-145) mmol/L Potassium 4.1 (3.4-5.1) mmol/L Chloride 105 (98-107) mmol/L Carbon Dioxide 22 (22-32) mmol/L BUN 22 H (9-20) mg/dL Creatinine 1.09 (0.66-1.25) mg/dL Estimated GFR > 60 (>60) mL/min BUN/Creatinine Ratio 20.2 (6-22) Glucose 108 H (70-99) mg/dL Calcium 8.4 (8.4-10.2) mg/dL Magnesium 2.1 (1.6-2.3) mg/dL Total Bilirubin 1.3 (0.2-1.3) mg/dL AST 184 H (17-59) IU/L ALT 40 (<50) IU/L Alkaline Phosphatase 66 (38-126) U/L Total Creatine Kinase 847 H (55-170) U/L Troponin I 29.900 H* (0.01-0.034) ng/mL NT-Pro-B Natriuret Pep 6560 H (<450) pg/mL Total Protein 7.3 (6.3-8.2) g/dL Albumin 4.2 (3.5-5.0) g/dL Globulin 3.1 (1.7-4.1) g/dL Albumin/Globulin Ratio 1.4 (1.0-2.8) Lipase 46 (23-300) U/L ECG Data Interpretation: Atrial fibrillation with RVR in the 137 beats per minute. Left axis deviation marked ST abnormality from rapid rate. Previous EKGs showed a sinus rhythm with occasional PVCs. MDM Narrative Medical decision making narrative: Patient given a loading dose of diltiazem and put on diltiazem drip. Patient claims that he can not handle on metoprolol and is on his allergy list as causing hypotension and near-syncope. The patient will be admitted for further management with the hospitalist. A repeat troponin would be taken as well. Discharge Plan Departure Patient Disposition: Admitted As Inpatient Clinical Impression: Paroxysmal atrial fibrillation Admit Date/Time: 04/11/25 13:17
[2025-04-11] MEDS: ASPIRIN 81 MG CHEW TAB 324 MG PO (11:46)
[2025-04-11 11:51] LABS: Hematocrit 42.3 % (41-53); Hemoglobin 14.3 g/dL (13.5-17.5); Lymphocytes Absolute Auto 1300 /uL (1100-4500); Mean Corpuscular HGB Conc 33.8 % (30-36); Mean Corpuscular Hemoglobin 30.7 PG (26-34); Mean Corpuscular Volume 91.0 fL (80-100); Platelet Count 180 X10^3/uL (150-400)
[2025-04-11 11:59] LABS: Add Manual Diff / Slide Review SLIDE REVIEW; INR 1.4 (0.9-1.3); Prothrombin Time 16.1 SECONDS (9.4-12.5)
[2025-04-11 12:01] LABS: PTT Partial Thromboplastin Tim 32 SECONDS (25.1-36.5)
[2025-04-11 12:04] LABS: Alanine Aminotransferase 40 IU/L (<50); Albumin 4.2 g/dL (3.5-5.0); Albumin Globulin Ratio 1.4 (1.0-2.8); Alkaline Phosphatase 66 U/L (38-126); Blood Urea Nitrogen 22 mg/dL (9-20); Calcium 8.4 mg/dL (8.4-10.2); Carbon Dioxide 22 mmol/L (22-32); Chloride 105 mmol/L (98-107); Creatine Kinase 847 U/L (55-170); Estimated Glomerular Filt Rate > 60 mL/min (>60); Globulin 3.1 g/dL (1.7-4.1); Glucose 108 mg/dL (70-99); HEMOLYSIS < 15 (0-50); Lipase 46 U/L (23-300); Magnesium 2.1 mg/dL (1.6-2.3); Potassium 4.1 mmol/L (3.4-5.1); Sodium 136 mmol/L (137-145); Total Protein 7.3 g/dL (6.3-8.2)
[2025-04-11 12:14] LABS: NT-proBNP (BNP-Adult 18+) 6560 pg/mL (<450)
[2025-04-11] MEDS: SODIUM CHLORIDE 0.9% 1,000 ML 1000 ML IV (12:28)
[2025-04-11 12:30] LABS: RBC Morphology Normal Morphology
[2025-04-11 12:47] LABS: Troponin I 29.900 ng/mL (0.01-0.034)
--- NOTE | 2025-04-11 13:06 | PM.HP.1 ---
History of Present Illness History of Present Illness Date Patient Seen: 04/11/25 Time Patient Seen: 13:07 Chief complaint: Poss heart attack; headache, pain radiating chest Narrative: This is a 79-year-old male with a history of right-sided hearing loss/acoustic neuroma, chronic bilateral headache, 4.4 cm ascending aortic dilation, coronary artery disease status post CABG, paroxysmal atrial fibrillation, multiple statin and hypertensive medication allergies and hypertension who presents with a flare in his bilateral ear/headaches along with bilateral lower neck pain. Symptoms started 2 days ago with the headaches and then the unusual aspect was the bilateral upper chest/lower neck pain. His EKG shows ST segment depression in the anterolateral precordial leads. The troponin is 29, the CK is 847 and the telemetry shows atrial fibrillation with rapid ventricular response. With the initial 20 mg dose of IV diltiazem the heart rate came down briefly and then went back up into the 120s requiring a diltiazem drip. His medical pathology teacher is Dr. Forbes. At his latest visit the ascending aorta had change from 4.2 cm to 4.4 cm and he was started on Repatha for his cholesterol. He says he never took it because he looked it up and read things about it that were ?not real good. ? He seems to be generally opposed to medication, limiting himself to aspirin despite his multiple CAD/AFib history but unable to give very clear reasons for why he has not been able to tolerate statins, DEEPA inhibitors, ARB and beta-carmencita. [facility] Medical History (Updated 04/11/25 @ 13:44 by Lazaro Rea MD) Chronic headache Cervicalgia Occipital neuralgia of left side Spondylosis without myelopathy or radiculopathy, cervical region Stroke (2018) Foot pain (2016) Obesity (BMI 30.0-34.9) Spasms of the hands or feet Right acoustic neuroma (2003) History of recurrent ear infection Hyperlipidemia Hypertension Hemorrhoids Hearing loss Chicken pox (~1955) Measles (~195) Mumps (~195) Plantar warts (~1964) Chronic back pain Shoulder pain (2012) CAD (coronary artery disease) (2007) Paroxysmal atrial fibrillation Gastric outlet obstruction (1997) Pyloric stenosis (194) Acute embolic stroke (12/14/17) Acoustic neuroma (09/02/15) Acute coronary syndrome Seizure Surgical History Anesthesia Status post gastric surgery (1997) History of gastrointestinal surgery (1948) History of ear surgery (2003) Status post coronary artery bypass graft (2007) Family History Sister Diabetes mellitus Father COPD (chronic obstructive pulmonary disease) Emphysema of lung Mother GI cancer Colon cancer Meds Home Medications and Allergies Home Medications ?Medication ?Instructions ?Recorded ?Confirmed ?Type ibuprofen 200 mg capsule 200 mg PO Q6H PRN 10/30/22 03/11/25 History tizanidine 4 mg tablet See Rx Instructions PO BEDTIME PRN 01/29/24 03/11/25 History acetaminophen 325 mg capsule 325 mg PO DAILY PRN 07/31/24 03/11/25 History methocarbamol 500 mg tablet 500 mg PO BEDTIME PRN 03/06/25 03/11/25 History Allergies Allergy/AdvReac Type Severity Reaction Status Date / Time losartan Allergy Severe seizures Verified 11/05/24 09:23 metoprolol Allergy Severe Hypotension, Verified 11/05/24 09:23 presyncope lisinopril AdvReac Mild Cough Verified 11/05/24 09:23 [place]-IPU-MnQ Reductase AdvReac Mild Verified 04/11/25 11:44 Inhibitor Review of Systems Review of Systems Narrative: Positive for edema, hearing loss, urinary frequency, headaches, upper chest/neck pain. Negative for fevers, chills, sweats, abdominal pain, vomiting, dysuria, joint pain, sore throat, new allergies. Exam Vital Signs (past 8 hours): - 04/11/25 11:32 04/11/25 11:34 04/11/25 11:45 Pulse Rate 139 H 138 H Respiratory Rate 34 H 20 Blood Pressure 159/102 H 159/102 H Pulse Oximetry 95 96 Oxygen Delivery Method Room Air 04/11/25 11:45 04/11/25 11:45 04/11/25 11:52 Pulse Rate 138 H Respiratory Rate Blood Pressure 147/98 H 113/68 Pulse Oximetry 94 Oxygen Delivery Method 04/11/25 11:52 04/11/25 11:55 04/11/25 11:55 Pulse Rate 116 H 99 H Respiratory Rate 19 19 Blood Pressure 108/67 Pulse Oximetry 94 92 Oxygen Delivery Method 04/11/25 12:00 04/11/25 12:00 04/11/25 12:10 Pulse Rate 107 H Respiratory Rate Blood Pressure 104/66 103/74 Pulse Oximetry 94 Oxygen Delivery Method 04/11/25 12:10 04/11/25 12:20 04/11/25 12:20 Pulse Rate 103 H 111 H Respiratory Rate 23 31 H Blood Pressure 102/73 Pulse Oximetry 92 93 Oxygen Delivery Method Oxygen Delivery Method Room Air Narrative Exam Narrative: Alert and oriented x3. Appears to be in mild distress from generalized discomfort. Complete hearing loss on the right side. Pupils are equally round and reactive to light and accommodation. Extraocular muscles are intact. Sclerae are pink and nonicteric. Throat looks normal No lymph nodes are felt head, neck, supraclavicular area. There is no thyromegaly. No carotid bruits heard. JVD is less than 6 cm. Heart is irregularly tachycardic. No murmurs are heard. Lungs are clear to auscultation bilaterally. Abdomen is soft, bowel sounds positive, nontender, obese, no organomegaly. Extremities have trace edema bilaterally. Neurologic exam: Cranial nerves 2-12 test intact. Motor function is 5/5 throughout. Deep tendon reflexes are symmetric. There is no tremor. Skin has no rash or jaundice. Objective Labs 04/11/25 11:33 04/11/25 11:33 Labs: Laboratory Results - last 24 hr 04/11/25 11:33 WBC 16.3 H RBC 4.65 Hgb 14.3 Hct 42.3 MCV 91.0 MCH 30.7 MCHC 33.8 RDW 14.2 Plt Count 180 Neut % (Auto) 76.0 H Lymph % (Auto) 7.7 L [place] % (Auto) 15.9 H Eos % (Auto) 0.1 L Baso % (Auto) 0.3 Neut # (Auto) 70544 H Lymph # (Auto) 1300 [place] # (Auto) 2600 H Eos # (Auto) 0 Baso # (Auto) 100 RBC Morphology Normal morphology PT 16.1 H INR 1.4 H APTT 32 Sodium 136 L Potassium 4.1 Chloride 105 Carbon Dioxide 22 BUN 22 H Creatinine 1.09 Estimated GFR > 60 BUN/Creatinine Ratio 20.2 Glucose 108 H Calcium 8.4 Magnesium 2.1 Total Bilirubin 1.3 AST 184 H ALT 40 Alkaline Phosphatase 66 Total Creatine Kinase 847 H Troponin I 29.900 H* NT-Pro-B Natriuret Pep 6560 H Total Protein 7.3 Albumin 4.2 Globulin 3.1 Albumin/Globulin Ratio 1.4 Lipase 46 Assessment & Plan Assessment & Plan narrative: This is a 79-year-old male with a history of right-sided hearing loss/acoustic neuroma, chronic bilateral headache, 4.4 cm ascending aortic dilation, coronary artery disease status post CABG, paroxysmal atrial fibrillation, multiple statin and hypertensive medication allergies and hypertension who presents with a flare in his bilateral ear/headaches along with bilateral lower neck pain. Symptoms started 2 days ago with the headaches and then the unusual aspect was the bilateral upper chest/lower neck pain. His EKG shows ST segment depression in the anterolateral precordial leads. The troponin is 29, the CK is 847 and the telemetry shows atrial fibrillation with rapid ventricular response. Bilateral lower neck pain with non ST-elevation UT and AFib with rapid ventricular response, present on admission. Active. -heparin drip, diltiazem drip, aspirin, Plavix. -patient is intolerant of multiple statins and metoprolol. -monitor on telemetry with serial troponins -troponin 29, EKG with ST segment depression V3-V6. -discuss further with Cardiology Coronary artery disease with probable NSTEMI, present on admission. Active. -CABG 2007 -troponin 29, EKG with segmental depression in the anterolateral leads -IV heparin, Plavix, aspirin, intolerant of statins and metoprolol Atrial fibrillation with rapid ventricular response, present on admission. Active. -previously declined anticoagulation and was intolerant of metoprolol. -IV heparin, IV diltiazem -discuss further with Cardiology Hypertension, present on admission. Chronic. -diltiazem Ascending aortic dilation, present on admission. Chronic. -progression from 4.2 cm to 4.4 cm on echo 06/17. DVT prevention with IV heparin His is his backup decision maker. Time-Based Coding :: [TOTAL MINUTES] spent with patient and on the chart (including review of chart, obtaining history, exam, reviewing outside data, placing orders, documenting exam and treatment plan, and counseling patient) on [DATE].
[2025-04-11] MEDS: HEPARIN DRIP 25,000 UNIT/500 ML IV.SOLN 20.226 UNIT IV (13:25)
--- NOTE | 2025-04-11 13:35 | PC.NURSE ---
Patient weighs greater than 82kg, initial infusion rate for heparin adjusted to 9.1units/kg/hr, confirmed with Laura RN. Patient at this time has 0/10 chest pain, only complaint is some neck pain, this RN adjusted pillow and offered some ice and patient states that it feels more comfortable.
[2025-04-11 14:09] LABS: Troponin I 24.000 ng/mL (0.01-0.034)
[2025-04-11] MEDS: CLOPIDOGREL 75 MG TABLET 300 MG PO (14:57)
[2025-04-11 16:12] LABS: MRSA (Nasal) PCR NOT DETECTED (Not Detect)
--- NOTE | 2025-04-11 16:14 | PC.NURSE ---
Transfer efforts initiated.
[2025-04-11 17:49] LABS: PTT Partial Thromboplastin Tim 39 SECONDS (25.1-36.5)
[2025-04-11 18:05] LABS: Troponin I 22.500 ng/mL (0.01-0.034)
[2025-04-11] MEDS: HEPARIN 5,000 UNIT/ML VIAL 2500 UNIT IV (18:25)
--- NOTE | 2025-04-11 20:11 | DI.CT.S_ITS ---
PROCEDURE: CT HEAD/BRAIN WO CON INDICATIONS: Please evaluate for stroke TECHNIQUE: Noncontrast 4.5 mm thick angled axial sections acquired from the foramen magnum to the vertex, with coronal and sagittal reformats. For radiation dose reduction, the following was used: automated exposure control, adjustment of mA and/or kV according to patient size. COMPARISON: [facility], MR, MR IAC (BRAIN) WWO CON, 07/11/2024, 7:22. (Additional prior imaging is not available for review from the archive at the time of this dictation.) FINDINGS: Image quality: This examination is limited by involuntary motion artifact. CSF spaces: Basal cisterns are patent. No extra-axial fluid collections. The ventricles are symmetric in size and shape. Brain: No intracranial bleeds or mass effect. There is cerebral volume loss, with resultant ventricular and sulcal prominence. There are periventricular and deep white matter chronic small vessel ischemic changes. There is intracranial internal carotid artery atherosclerosis. Skull and face: Right-sided craniotomy change can be seen posteriorly and inferiorly. Calvarium and visualized facial bones appear intact, without suspicious lesions. Sinuses: Visualized sinuses and mastoids are clear. IMPRESSION: Motion limited study, without a inocencio acute intracranial hemorrhage. 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 If there is strong clinical suspicion for an acute stroke, please consider a brain MRI for further evaluation, as it is more sensitive (assuming that there is no contraindication to MRI). Note: Case discussed by telephone with Dr. Lee at 8:32 p.m. Collins time on April 11, 2025. Dictated by: Sal Zaldivar M.D. on 04/11/2025 at 19:26 Approved by: Sal Zaldivar M.D. on 04/11/2025 at 19:32
--- NOTE | 2025-04-11 21:02 | PC.NURSE ---
Prior to EMS arrival patient was A&O x4. Spoke with patient about the transfer to [facility], and patient was on board. Once EMS arrived patient helped to bathroom by staff. Patient then placed on gurney for transport. At approximately 2008 patient became non-verbal was not able to answer any questions and was unable to follow commands. Rapid response called. Patient taken to CT for STAT head CT. Night Hospitalist informed on patient acute change. CT results in chart. Provider aware. Provider saw patient at bedside via the [facility] service. Provider declared patient to be medically stable to transfer. Report given to REECE Cox at [facility] at this time.
--- NOTE | 2025-04-12 07:20 | PM.DS.1 ---
History of Present Illness History of Present Illness Chief complaint: Poss heart attack; headache, pain radiating chest Narrative: This is a 79-year-old male with a history of right-sided hearing loss/acoustic neuroma, chronic bilateral headache, 4.4 cm ascending aortic dilation, coronary artery disease status post CABG, paroxysmal atrial fibrillation, multiple statin and hypertensive medication allergies and hypertension who presents with a flare in his bilateral ear/headaches along with bilateral lower neck pain. Symptoms started 2 days ago with the headaches and then the unusual aspect was the bilateral upper chest/lower neck pain. His EKG shows ST segment depression in the anterolateral precordial leads. The troponin is 29, the CK is 847 and the telemetry shows atrial fibrillation with rapid ventricular response. With the initial 20 mg dose of IV diltiazem the heart rate came down briefly and then went back up into the 120s requiring a diltiazem drip. His manager federal is Dr. Forbes. At his latest visit the ascending aorta had change from 4.2 cm to 4.4 cm and he was started on Repatha for his cholesterol. He says he never took it because he looked it up and read things about it that were ?not real good. ? He seems to be generally opposed to medication, limiting himself to aspirin despite his multiple CAD/AFib history but unable to give very clear reasons for why he has not been able to tolerate statins, DEEPA inhibitors, ARB and beta-carmencita. Discharge Providers Provider Date of admission: 04/11/25 13:17 Discharge Date: 04/11/25 Primary care physician: Mane Christine MD Discharge provider: Ivelisse Berman MD Summary Hospital Course Hospital Course: Discussed atrial fibrillation with rapid ventricular response and non ST elevation PA with on-call manager federal, Dr. Mota. She reviewed his previous outpatient cardiology notes, his multiple medication intolerances and his general belief in avoiding medication treatment. We discussed that medical treatment of a NSTEMI is what he is currently doing, on a heparin drip for 48 hours along with aspirin. The option of coronary angiogram and potential stent placement is possible if the patient is willing to accept treatment afterwards, including the prolonged use of Plavix and also the use of anticoagulation such as Eliquis for stroke prevention in his atrial fibrillation condition. This was discussed with the patient who then spoke with his family and decided to accept transfer for further evaluation by Cardiology in [place] at [facility]. Status at Discharge Cognitive/behavioral status at discharge: oriented Functional status at discharge: independent ambulation Overall status at discharge: patient is not back to baseline Exam Vital Signs (past 8 hours): Oxygen Delivery Method Room Air Oxygen Flow Rate 0 Narrative Exam Narrative: Alert and oriented x3. Appears to be in mild distress from generalized discomfort. Complete hearing loss on the right side. Pupils are equally round and reactive to light and accommodation. Extraocular muscles are intact. Sclerae are pink and nonicteric. Throat looks normal No lymph nodes are felt head, neck, supraclavicular area. There is no thyromegaly. No carotid bruits heard. JVD is less than 6 cm. Heart is irregularly tachycardic. No murmurs are heard. Lungs are clear to auscultation bilaterally. Abdomen is soft, bowel sounds positive, nontender, obese, no organomegaly. Extremities have trace edema bilaterally. Neurologic exam: Cranial nerves 2-12 test intact. Motor function is 5/5 throughout. Deep tendon reflexes are symmetric. There is no tremor. Skin has no rash or jaundice. Objective Labs 04/11/25 11:33 04/11/25 11:33 Labs: Laboratory Results - last 24 hr 04/11/25 04/11/25 04/11/25 11:33 13:30 14:47 WBC 16.3 H RBC 4.65 Hgb 14.3 Hct 42.3 MCV 91.0 MCH 30.7 MCHC 33.8 RDW 14.2 Plt Count 180 Neut % (Auto) 76.0 H Lymph % (Auto) 7.7 L [place] % (Auto) 15.9 H Eos % (Auto) 0.1 L Baso % (Auto) 0.3 Neut # (Auto) 73055 H Lymph # (Auto) 1300 [place] # (Auto) 2600 H Eos # (Auto) 0 Baso # (Auto) 100 RBC Morphology Normal morphology PT 16.1 H INR 1.4 H APTT 32 Sodium 136 L Potassium 4.1 Chloride 105 Carbon Dioxide 22 BUN 22 H Creatinine 1.09 Estimated GFR > 60 BUN/Creatinine Ratio 20.2 Glucose 108 H POC Whole Bld Glucose Calcium 8.4 Magnesium 2.1 Total Bilirubin 1.3 AST 184 H ALT 40 Alkaline Phosphatase 66 Total Creatine Kinase 847 H Troponin I 29.900 H* 24.000 H* NT-Pro-B Natriuret Pep 6560 H Total Protein 7.3 Albumin 4.2 Globulin 3.1 Albumin/Globulin Ratio 1.4 Lipase 46 Nasal Screen MRSA (PCR) Not detected 04/11/25 04/11/25 17:30 20:17 WBC RBC Hgb Hct MCV MCH MCHC RDW Plt Count Neut % (Auto) Lymph % (Auto) [place] % (Auto) Eos % (Auto) Baso % (Auto) Neut # (Auto) Lymph # (Auto) [place] # (Auto) Eos # (Auto) Baso # (Auto) RBC Morphology PT INR APTT 39 H D Sodium Potassium Chloride Carbon Dioxide BUN Creatinine Estimated GFR BUN/Creatinine Ratio Glucose POC Whole Bld Glucose 107 H Calcium Magnesium Total Bilirubin AST ALT Alkaline Phosphatase Total Creatine Kinase Troponin I 22.500 H* NT-Pro-B Natriuret Pep Total Protein Albumin Globulin Albumin/Globulin Ratio Lipase Nasal Screen MRSA (PCR) [facility] Medical History (Updated 04/11/25 @ 13:44 by Lazaro Rea MD) Chronic headache Cervicalgia Occipital neuralgia of left side Spondylosis without myelopathy or radiculopathy, cervical region Stroke (2018) Foot pain (2016) Obesity (BMI 30.0-34.9) Spasms of the hands or feet Right acoustic neuroma (2003) History of recurrent ear infection Hyperlipidemia Hypertension Hemorrhoids Hearing loss Chicken pox (~1955) Measles (~1955) Mumps (~1955) Plantar warts (~1965) Chronic back pain Shoulder pain (2012) CAD (coronary artery disease) (2007) Paroxysmal atrial fibrillation Gastric outlet obstruction (1997) Pyloric stenosis (8) Acute embolic stroke (12/14/17) Acoustic neuroma (09/02/15) Acute coronary syndrome Seizure Surgical History Anesthesia Status post gastric surgery (1997) History of gastrointestinal surgery (194) History of ear surgery (2003) Status post coronary artery bypass graft (2007) Family History Sister Diabetes mellitus Father COPD (chronic obstructive pulmonary disease) Emphysema of lung Mother GI cancer Colon cancer Social History household members: spouse Smoking Status: Never smoker alcohol intake: never Discharge Plan Discharge Plan Patient Disposition: [facility] Other facility: [facility] Discharge Data Primary Care Provider: Mane Christine
== END 2025-04-11 21:00 | disposition short-term general hospital (02) | DRG 282 ==
LOC: ED 12:12 → AC 13:18 → ICU 14:15
PROVIDERS: Admitting Provider Family Medicine; Emergency Provider Family Medicine; PCP Family Medicine; Referring Provider Family Medicine; Visit Provider Family Medicine
DX: I21.4 Non-ST elevation (NSTEMI) myocardial infarction (principal); I25.10 Atherosclerotic heart disease of native coronary artery without angina pectoris; M54.2 Cervicalgia; I10 Essential (primary) hypertension; I48.0 Paroxysmal atrial fibrillation; I77.819 Aortic ectasia, unspecified site; Z95.1 Presence of aortocoronary bypass graft
CPT/HCPCS: 70450; 71045; 80053; 82550; 82962; 83690; 83735; 83880; 84484; 85025; 85610; 85730; 87797; 93005; 96361; 96365; 96368; 96376; 99284; J1644

== ENCOUNTER → 2025-04-23 07:02 | Outpatient (CLI) | payer MEDICARE, OTHER, SELFPAY ==
[2025-04-20 11:22] VITALS: BMI 34.6
[2025-04-23 08:25] LABS: Hematocrit 39.1 % (41-53); Hemoglobin 13.2 g/dL (13.5-17.5); Mean Corpuscular HGB Conc 33.7 % (30-36); Mean Corpuscular Hemoglobin 30.7 PG (26-34); Mean Corpuscular Volume 91.1 fL (80-100); Platelet Count 325 X10^3/uL (150-400)
[2025-04-23 08:54] LABS: Blood Urea Nitrogen 13 mg/dL (9-20); Calcium 8.6 mg/dL (8.4-10.2); Carbon Dioxide 29 mmol/L (22-32); Chloride 104 mmol/L (98-107); Estimated Glomerular Filt Rate > 60 mL/min (>60); Glucose 92 mg/dL (70-99); HEMOLYSIS < 15 (0-50); Potassium 4.6 mmol/L (3.4-5.1); Sodium 139 mmol/L (137-145)
[2025-04-23 09:03] LABS: NT-proBNP (BNP-Adult 18+) 5540 pg/mL (<450)
== END ==
PROVIDERS: PCP Family Medicine; Referring Provider Internal Medicine Cardiovascular Disease; Visit Provider Internal Medicine Cardiovascular Disease
DX: I50.31 Acute diastolic (congestive) heart failure (principal)
CPT/HCPCS: 36415; 80048; 83880; 85027

== ENCOUNTER → 2025-07-23 08:34 | Outpatient (CLI) | payer MEDICARE, OTHER, SELFPAY ==
[2025-04-20 11:22] VITALS: BMI 34.6
[2025-07-23 09:45] LABS: Hematocrit 43.5 % (41-53); Hemoglobin 14.6 g/dL (13.5-17.5); Mean Corpuscular HGB Conc 33.6 % (30-36); Mean Corpuscular Hemoglobin 30.5 PG (26-34); Mean Corpuscular Volume 91.0 fL (80-100); Platelet Count 175 X10^3/uL (150-400)
[2025-07-23 10:09] LABS: Blood Urea Nitrogen 30 mg/dL (9-20); Calcium 9.0 mg/dL (8.4-10.2); Carbon Dioxide 25 mmol/L (22-32); Chloride 107 mmol/L (98-107); Estimated Glomerular Filt Rate > 60 mL/min (>60); Glucose 95 mg/dL (70-99); HEMOLYSIS < 15 (0-50); Potassium 4.9 mmol/L (3.4-5.1); Sodium 139 mmol/L (137-145)
[2025-07-23 10:17] LABS: NT-proBNP (BNP-Adult 18+) 2330 pg/mL (<450)
== END ==
PROVIDERS: PCP Family Medicine; Referring Provider Family Medicine; Visit Provider Internal Medicine Cardiovascular Disease
DX: I50.22 Chronic systolic (congestive) heart failure (principal)
CPT/HCPCS: 36415; 80048; 83880; 85027